=== PATIENT | male | born 1955 | race Caucasian/White ===

== ENCOUNTER 2018-08-19 02:56 | Observation (INO) | payer OTHER ==
--- NOTE | 2018-08-19 03:09 | ED ---
General Adult HPI <Kamari Freed - Last Filed: 08/19/18 12:50> - General Source: patient, family Mode of arrival: ambulatory Limitations: no limitations <Neelam Rincon - Last Filed: 08/26/18 21:15> - General Chief complaint: Abdominal Pain Stated complaint: Side pain Time Seen by Provider: 08/19/18 03:08 - History of Present Illness Initial comments: Fabiano is an obese 62-year-old male who presents the emergency department today for reevaluation of right-sided rib and flank pain. Patient reports that on he had a coughing fit and believes that he displaced rib. He experienced excruciating pain in his right ribs at that time. Since he has been evaluated by urgent care that he had an unremarkable chest x- ray and was prescribed narcotic pain medications. He subsequently followed up with his primary care provider 2 times had repeat chest x-rays was prescribed narcotic pain medications. Both visits and muscle relaxers. Patient reports that last week he believed his symptoms were getting better however he is now out of medications and since Saturday he has had progressively worsening right- sided rib pain. He reports that tonight he was unable to sleep at all due to the pain. Pain is sharp in the right-sided ribs worse with deep inspiration, cough, sneezing. (Neelam Rincon) - Related Data Home Medications Medication Instructions Recorded Confirmed Atorvastatin [Lipitor] 20 mg PO W/SUPPER 07/15/14 08/19/18 metFORMIN HCL [Glucophage] 500 mg PO W/SUPPER 07/15/14 08/19/18 Allopurinol [Zyloprim] 200 mg PO W/SUPPER 03/05/16 08/19/18 Citalopram Hydrobromide [CeleXA] 20 mg PO W/SUPPER 08/19/18 08/19/18 Diltiazem Cd [Cardizem CD] 300 mg PO W/SUPPER 08/19/18 08/19/18 Magnesium Oxide [Mag-Ox] 800 mg PO W/SUPPER 08/19/18 08/19/18 Previous Rx's Medication Instructions Recorded Cyclobenzaprine [Flexeril] 5 mg PO TID PRN #20 tab 08/21/18 HYDROcodone/APAP 5-325MG [[place] 1 tab PO Q6HR PRN 3 Days #12 tab 08/21/18 5-325] Pantoprazole [Protonix] 40 mg PO BID #60 tablet. 08/21/18 traMADol HCL [Ultram] 50 mg PO Q6HR PRN 3 Days #12 tab 08/21/18 Allergies Allergy/AdvReac Type Severity Reaction Status Date / Time No Known Allergies Allergy Verified 08/19/18 12:20 Review of Systems ROS Other: All systems not noted in ROS Statement are negative. <Kamari Freed - Last Filed: 08/19/18 12:50> ROS Other: All systems not noted in ROS Statement are negative. <Neelam Rincon - Last Filed: 08/26/18 21:15> ROS Statement: Those systems with pertinent positive or pertinent negative responses have been documented in the HPI. Past Medical History Past Medical History: Diabetes Mellitus, Hyperlipidemia, Hypertension History of Any Multi-Drug Resistant Organisms: None Reported Past Surgical History: Back Surgery Past Psychological History: Depression Smoking Status: Never smoker Past Alcohol Use History: Rare Past Drug Use History: None Reported - Past Family History Father Family Medical History: Coronary Artery Disease (CAD) Additional Family Medical History / Comment(s): Father while on the list for a heart donation. He had CABG twice. Mother Family Medical History: Coronary Artery Disease (CAD), Hypertension, Renal Disease Additional Family Medical History / Comment(s): Mother had CABG. She lived to be 97yrs old. <Neelam Rincon - Last Filed: 08/26/18 21:15> General Exam Limitations: no limitations <Neelam Rincon - Last Filed: 08/26/18 21:15> Course <Kamari Freed - Last Filed: 08/19/18 12:50> <Neelam Rincon - Last Filed: 08/26/18 21:15> Vital Signs 08/19/18 08/19/18 08/19/18 02:57 07:20 13:21 Temperature 98.3 F 97.9 F Pulse Rate 75 79 74 Respiratory 24 18 17 Rate Blood Pressure 143/83 136/77 128/87 O2 Sat by Pulse 91 L 97 95 Oximetry - Reevaluation(s) Reevaluation #1: 01/29/19 12:51 The patient was endorsed me at our shift change pending ultrasound report. Patient demonstrates a sonographic Maguire sign. Patient has abdominal pain on palpation no evidence of any rash. No evidence fractures. No gallstones noted. Patient does have intractable pain will be admitted with surgical consultation. (Kamari Freed) Medical Decision Making - Lab Data Result diagrams: 08/19/18 05:50 08/19/18 04:35 <Kamari Freed - Last Filed: 08/19/18 12:50> - Lab Data Result diagrams: 08/20/18 07:11 08/21/18 11:23 <Neelam Rincon - Last Filed: 08/26/18 21:15> - Medical Decision Making Patient was seen and evaluated history is obtained from patient Labs and imaging were ordered and sent considering the persistence of the patient's right-sided rib pain as well as hypoxia I have concern for occult rib fracture versus pulmonary embolism Labs and imaging were ordered Labs had some hemolysis there is mild hyperkalemia CT pulmonary embolism study with no PE no signs of rib fracture no cause for patient's pain Patient received morphine and then Dilaudid he reports his pain remains 10 out of 10 Lidoderm was ordered for the discomfort Patient does have an outpatient ultrasound of his liver ordered, we'll perform ultrasound here to evaluate gallbladder despite the normal labs Patient care signed out to Dr. Freed at shift change (Neelam Rincon) - Lab Data Lab Results 08/19/18 08/19/18 08/19/18 Range/Units 04:35 05:50 05:50 WBC 11.0 H (3.8-10.6) k/uL RBC 4.00 L (4.30-5.90) m/uL Hgb 11.7 L (13.0-17.5) gm/dL Hct 38.2 L (39.0-53.0) % MCV 95.4 (80.0-100.0) fL MCH 29.2 (25.0-35.0) pg MCHC 30.6 L (31.0-37.0) g/dL RDW 14.6 (11.5-15.5) % Plt Count 298 (150-450) k/uL Neutrophils % 73 % Lymphocytes % 18 % Monocytes % 5 % Eosinophils % 2 % Basophils % 0 % Neutrophils # 8.0 H (1.3-7.7) k/uL Lymphocytes # 2.0 (1.0-4.8) k/uL Monocytes # 0.6 (0-1.0) k/uL Eosinophils # 0.2 (0-0.7) k/uL Basophils # 0.0 (0-0.2) k/uL PT 9.4 (9.0-12.0) sec INR 0.9 (<1.2) APTT 22.6 (22.0-30.0) sec D-Dimer 0.86 H (<0.60) mg/L FEU Sodium 135 L (137-145) mmol/L Potassium 5.6 H (3.5-5.1) mmol/L Chloride 105 (98-107) mmol/L Carbon Dioxide 21 L (22-30) mmol/L Anion Gap 9 mmol/L BUN 31 H (9-20) mg/dL Creatinine 1.43 H (0.66-1.25) mg/dL Est GFR (CKD-EPI)AfAm 60 (>60 ml/min/1.73 sqM) Est GFR (CKD-EPI)NonAf 52 (>60 ml/min/1.73 sqM) Glucose 146 H (74-99) mg/dL Estimated Ave Glu mg/dL Hemoglobin A1c (4.0-6.0) % Calcium 9.8 (8.4-10.2) mg/dL Total Bilirubin 0.7 (0.2-1.3) mg/dL AST 24 (17-59) U/L ALT 35 (21-72) U/L Alkaline Phosphatase 73 (38-126) U/L NT-Pro-B Natriuret Pep pg/mL Total Protein 7.5 (6.3-8.2) g/dL Albumin 4.1 (3.5-5.0) g/dL Amylase 111 H (30-110) U/L Lipase 151 (23-300) U/L 08/19/18 08/19/18 Range/Units 05:50 05:50 WBC (3.8-10.6) k/uL RBC (4.30-5.90) m/uL Hgb (13.0-17.5) gm/dL Hct (39.0-53.0) % MCV (80.0-100.0) fL MCH (25.0-35.0) pg MCHC (31.0-37.0) g/dL RDW (11.5-15.5) % Plt Count (150-450) k/uL Neutrophils % % Lymphocytes % % Monocytes % % Eosinophils % % Basophils % % Neutrophils # (1.3-7.7) k/uL Lymphocytes # (1.0-4.8) k/uL Monocytes # (0-1.0) k/uL Eosinophils # (0-0.7) k/uL Basophils # (0-0.2) k/uL PT (9.0-12.0) sec INR (<1.2) APTT (22.0-30.0) sec D-Dimer (<0.60) mg/L FEU Sodium (137-145) mmol/L Potassium (3.5-5.1) mmol/L Chloride (98-107) mmol/L Carbon Dioxide (22-30) mmol/L Anion Gap mmol/L BUN (9-20) mg/dL Creatinine (0.66-1.25) mg/dL Est GFR (CKD-EPI)AfAm (>60 ml/min/1.73 sqM) Est GFR (CKD-EPI)NonAf (>60 ml/min/1.73 sqM) Glucose (74-99) mg/dL Estimated Ave Glu mg/dL 189 Hemoglobin A1c 8.2 H (4.0-6.0) % Calcium (8.4-10.2) mg/dL Total Bilirubin (0.2-1.3) mg/dL AST (17-59) U/L ALT (21-72) U/L Alkaline Phosphatase (38-126) U/L NT-Pro-B Natriuret Pep 65 pg/mL Total Protein (6.3-8.2) g/dL Albumin (3.5-5.0) g/dL Amylase (30-110) U/L Lipase (23-300) U/L Disposition <Kamari Freed - Last Filed: 08/19/18 12:50> <Neelam Rincon - Last Filed: 08/26/18 21:15> Clinical Impression: Abdominal pain, Intractable abdominal pain, Biliary colic Disposition: ADMITTED IP TO THIS HOSP Condition: Stable
[2018-08-19] MEDS ORDERED: SODIUM CHLORIDE 0.9% 1,000 ML IV STA (03:59)
[2018-08-19] MEDS ORDERED: MORPHINE SULFATE 4 MG/ML SYRINGE IVP STA (04:41)
[2018-08-19 05:12] LABS: Albumin 4.1 g/dL (3.5-5.0); Calcium 9.8 mg/dL (8.4-10.2); Total Bilirubin 0.7 mg/dL (0.2-1.3); Total Protein 7.5 g/dL (6.3-8.2)
[2018-08-19 05:28] LABS: Potassium 5.6 mmol/L (3.5-5.1)
[2018-08-19] MEDS ORDERED: HYDROmorphone 1 MG/ML 1 ML SYRINGE IVP STA ×2 (06:08→12:50)
[2018-08-19 06:29] LABS: INR 0.9 (<1.2); Partial Thromboplastin Time 22.6 sec (22.0-30.0); Prothrombin Time 9.4 sec (9.0-12.0)
[2018-08-19 06:40] LABS: D-Dimer 0.86 mg/L FEU (<0.60)
[2018-08-19 06:46] LABS: Basophils % (A) 0 %; Eosinophils # (A) 0.2 k/uL (0-0.7); Eosinophils % (A) 2 %; HCT 38.2 % (39.0-53.0); HGB 11.7 gm/dL (13.0-17.5); Lymphocytes % (A) 18 %; MCH 29.2 pg (25.0-35.0); MCHC 30.6 g/dL (31.0-37.0); MCV 95.4 fL (80.0-100.0); Mean Platelet Volume 6.5; Monocytes # (A) 0.6 k/uL (0-1.0); Monocytes % (A) 5 %; Neutrophils % (A) 73 %; Platelet Count 298 k/uL (150-450); RDW 14.6 % (11.5-15.5)
--- NOTE | 2018-08-19 07:07 | CT ---
EXAM: CT Angiography Chest With Intravenous Contrast CLINICAL HISTORY: ITS.REASON CT Reason: Pain TECHNIQUE: Axial computed tomographic angiography images of the chest with intravenous contrast using pulmonary embolism protocol. CTDI is 31.1 mGy and DLP is 906.4 mGy-cm. This CT exam was performed using one or more of the following dose reduction techniques: automated exposure control, adjustment of the mA and/or kV according to patient size, and/or use of iterative reconstruction technique. MIP reconstructed images were created and reviewed. Coronal and sagittal reformatted images were created and reviewed. COMPARISON: No relevant prior studies available. FINDINGS: Pulmonary arteries: No evidence of pulmonary embolism. Aorta: No acute findings. No thoracic aortic aneurysm. Lungs: Low lung volumes with mosaic attenuation which may reflect a degree of air trapping. No mass. Pleural space: Unremarkable. No significant effusion. No pneumothorax. Heart: Coronary vessel calcifications. No significant pericardial effusion. No evidence of RV dysfunction. Bones/joints: Multilevel degenerative changes of the spine. No acute fracture. No dislocation. Soft tissues: Prominent epicardial fat. Lymph nodes: Unremarkable. No enlarged lymph nodes. IMPRESSION: 1. No evidence of pulmonary embolism. 2. Low lung volumes with mosaic attenuation which may reflect a degree of air trapping.
[2018-08-19] MEDS ORDERED: LIDOCAINE 5% PATCH TOPICAL STA (07:42)
--- NOTE | 2018-08-19 08:53 | US ---
EXAMINATION TYPE: US abdomen limited DATE OF EXAM: 08/19/2018 COMPARISON: CT & US CLINICAL HISTORY: Pain. RUQ pain EXAM MEASUREMENTS: Liver Length: 13.8 cm Gallbladder Wall: 0.3 cm CBD: 0.4 cm Right Kidney: 11.6 x 7.2 x 6.5 cm Technically difficult study. Patient of large body habitus. Extensive midline bowel gas present. Elly ent very tender, does not tolerate probe pressure. Patient complains of shooting pains like a leg scraper operator mp in abdomen. Doctor states normal bloodwork. Pancreas: not visualized due to midline bowel gas Liver: very limited evaluation, limited to intercostal window. Gallbladder: very limited evaluation, no obvious stones seen Evidence for sonographic Maguire's sign: Yes, patient very tender everywhere, unable to tolerate pr obe pressure CBD: very limited evaluation Right Kidney: No hydronephrosis or masses seen IMPRESSION: 1. Limited evaluation. Positive sonographic Maguire's sign. No evidence of cholelithiasis this time. 2. Coarse echo appearance throughout the liver. Consider fatty liver.
[2018-08-19] MEDS ORDERED: ONDANSETRON 4 MG/2 ML VIAL IVP PRN (12:52)
[2018-08-19] MEDS ORDERED: NALOXONE 0.4 MG/ML 1 ML VIAL IV PRN (12:52)
--- NOTE | 2018-08-19 15:20 | P.GSCN ---
History of Present Illness Consult date: 08/19/18 Reason for Consult: Right upper quadrant pain History of present illness: Patient presents to the hospital complaining of pain in the right upper quadrant right chest region. Apparently he fell on and landed on his left hip. Approximately one week later the patient was having some heavy sneezing and developed right upper quadrant pain. This pain has persisted over the last several weeks. Pain is aggravated by bending over, coughing, sneezing , laughing. No correlation with greasy food intake. No nausea or vomiting. No change in appetite. Patient says he has had x-rays. CAT scan of the chest showed no definite abnormalities. Ultrasound showed no gallstones. Patient denies any trauma or bruising to that location. No rash in that area. Patient was given antibiotics for a upper respiratory infection. He was also given muscle relaxants and felt that the pain was gradually improving on the muscle relaxants. No history of similar events in the past. Pain does radiate to the back at times. White blood cell count slightly elevated. Amylase slightly elevated. Liver enzymes normal. 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 Past Anesthesia/Blood Transfusion Reactions: No Reported Reaction Smoking Status: Never smoker - Past Family History Father Family Medical History: Coronary Artery Disease (CAD) Additional Family Medical History / Comment(s): Father while on the list for a heart donation. He had CABG twice. Mother Family Medical History: Coronary Artery Disease (CAD), Hypertension, Renal Disease Additional Family Medical History / Comment(s): Mother had CABG. She lived to be 97yrs old. Medications and Allergies Home Medications Medication Instructions Recorded Confirmed Type Atorvastatin [Lipitor] 20 mg PO W/SUPPER 07/15/14 08/19/18 History Lisinopril [Zestril] 10 mg PO W/SUPPER 07/15/14 08/19/18 History metFORMIN HCL [Glucophage] 500 mg PO W/SUPPER 07/15/14 08/19/18 History Allopurinol [Zyloprim] 200 mg PO W/SUPPER 03/05/16 08/19/18 History Citalopram Hydrobromide [CeleXA] 20 mg PO W/SUPPER 08/19/18 08/19/18 History Diltiazem Cd [Cardizem Cd] 300 mg PO W/SUPPER 08/19/18 08/19/18 History Magnesium Oxide [Mag-Ox] 800 mg PO W/SUPPER 08/19/18 08/19/18 History Allergies Allergy/AdvReac Type Severity Reaction Status Date / Time No Known Allergies Allergy Verified 08/19/18 12:20 Surgical - Exam Vital Signs Temp Pulse Resp BP Pulse Ox 98.3 F 75 24 143/83 91 L 08/19/18 02:57 08/19/18 02:57 08/19/18 02:57 08/19/18 02:57 08/19/18 02:57 Physical exam: General: Well-developed, well-nourished HEENT: Normocephalic, sclerae nonicteric Abdomen: Right costal tenderness, tenderness on the right chest wall, no bruising, right upper quadrant tenderness as well, nondistended Extremities: No edema Neuro: Alert and oriented Results - Labs 08/19/18 05:50 08/19/18 04:35 Abnormal Lab Results - Last 24 Hours (Table) 08/19/18 08/19/18 08/19/18 Range/Units 04:35 05:50 05:50 WBC 11.0 H (3.8-10.6) k/uL RBC 4.00 L (4.30-5.90) m/uL Hgb 11.7 L (13.0-17.5) gm/dL Hct 38.2 L (39.0-53.0) % MCHC 30.6 L (31.0-37.0) g/dL Neutrophils # 8.0 H (1.3-7.7) k/uL D-Dimer 0.86 H (<0.60) mg/L FEU Sodium 135 L (137-145) mmol/L Potassium 5.6 H (3.5-5.1) mmol/L Carbon Dioxide 21 L (22-30) mmol/L BUN 31 H (9-20) mg/dL Creatinine 1.43 H (0.66-1.25) mg/dL Glucose 146 H (74-99) mg/dL Amylase 111 H (30-110) U/L Diabetes panel 08/19/18 Range/Units 04:35 Sodium 135 L (137-145) mmol/L Potassium 5.6 H (3.5-5.1) mmol/L Chloride 105 (98-107) mmol/L Carbon Dioxide 21 L (22-30) mmol/L BUN 31 H (9-20) mg/dL Creatinine 1.43 H (0.66-1.25) mg/dL Glucose 146 H (74-99) mg/dL Calcium 9.8 (8.4-10.2) mg/dL AST 24 (17-59) U/L ALT 35 (21-72) U/L Alkaline Phosphatase 73 (38-126) U/L Total Protein 7.5 (6.3-8.2) g/dL Albumin 4.1 (3.5-5.0) g/dL Calcium panel 08/19/18 Range/Units 04:35 Calcium 9.8 (8.4-10.2) mg/dL Albumin 4.1 (3.5-5.0) g/dL Pituitary panel 08/19/18 Range/Units 04:35 Sodium 135 L (137-145) mmol/L Potassium 5.6 H (3.5-5.1) mmol/L Chloride 105 (98-107) mmol/L Carbon Dioxide 21 L (22-30) mmol/L BUN 31 H (9-20) mg/dL Creatinine 1.43 H (0.66-1.25) mg/dL Glucose 146 H (74-99) mg/dL Calcium 9.8 (8.4-10.2) mg/dL Adrenal panel 08/19/18 Range/Units 04:35 Sodium 135 L (137-145) mmol/L Potassium 5.6 H (3.5-5.1) mmol/L Chloride 105 (98-107) mmol/L Carbon Dioxide 21 L (22-30) mmol/L BUN 31 H (9-20) mg/dL Creatinine 1.43 H (0.66-1.25) mg/dL Glucose 146 H (74-99) mg/dL Calcium 9.8 (8.4-10.2) mg/dL Total Bilirubin 0.7 (0.2-1.3) mg/dL AST 24 (17-59) U/L ALT 35 (21-72) U/L Alkaline Phosphatase 73 (38-126) U/L Total Protein 7.5 (6.3-8.2) g/dL Albumin 4.1 (3.5-5.0) g/dL Assessment and Plan (1) Abdominal pain Narrative/Plan: Patient's history and exam suggest probably a musculoskeletal source of pain. Underlying biliary disease has not been completely excluded. CAT scan abdomen with contrast and HIDA scan remain options to evaluate this patient's pain although certainly will be limited by the patient's body habitus. The patient himself believes that the symptoms are related to his lower right ribs. Will resume diet at this time. We'll follow with you. Current Visit: Yes Status: Acute Code(s): R10.9 - UNSPECIFIED ABDOMINAL PAIN SNOMED Code(s): 83493009
[2018-08-19] MEDS: SODIUM CHLORIDE 0.9% 1,000 ML IV SCH ×2 (15:49→23:03)
[2018-08-19] MEDS: HYDROmorphone 0.5 MG/0.5 ML SYRINGE IVP PRN ×3 (16:36→22:59)
[2018-08-19 17:14] LABS: Glucose,Whole Blood 132 mg/dL (75-99)
[2018-08-19] MEDS: traMADol 50 MG TAB PO PRN (17:47)
[2018-08-19] MEDS: ATORVASTATIN 20 MG TAB PO SCH (17:47)
[2018-08-19] MEDS: DILTIAZEM CD 300 MG CAP.ER.24H PO SCH (17:48)
[2018-08-19] MEDS: INSULIN ASPART 100 UNIT/ML 1 ML 10 ML VIAL SQ SCH ×2 (17:48→20:53)
--- NOTE | 2018-08-19 18:22 | P.HPIM ---
History of Present Illness 62-year-old the female came in with complains of bladder, upper quadrant abdominal pain severe patient has some chronic abdominal pain much worse for last couple days appears to be muscular skeletal patient elicits like a muscle pull. Patient had a CAT scan of the abdomen which did not show any pulmonary embolism abdominal ultrasound did not show any significant abnormality. Patient 's abdominal pain is not related to food constant pain no aggravating or relieving factors. Patient denied any fever chills. Gradually improves with muscle relaxants. Review of Systems REVIEW OF SYSTEMS: CONSTITUTIONAL: No fever, no malaise, no fatigue. HEENT: No recent visual problems or hearing problems. Denied any sore throat. CARDIOVASCULAR: No chest pain, orthopnea, PND, no palpitations, no syncope. PULMONARY: No shortness of breath, no cough, no hemoptysis. GASTROINTESTINAL: As mentioned in HPI NEUROLOGICAL: No headaches, no weakness, no numbness. HEMATOLOGICAL: Denies any bleeding or petechiae. GENITOURINARY: Denies any burning micturition, frequency, or urgency. MUSCULOSKELETAL/RHEUMATOLOGICAL: Denies any joint pain, swelling, or any muscle pain. ENDOCRINE: Denies any polyuria or polydipsia. The rest of the 14-point review of systems is negative. 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 Past Anesthesia/Blood Transfusion Reactions: No Reported Reaction Smoking Status: Never smoker - Past Family History Father Family Medical History: Coronary Artery Disease (CAD) Additional Family Medical History / Comment(s): Father while on the list for a heart donation. He had CABG twice. Mother Family Medical History: Coronary Artery Disease (CAD), Hypertension, Renal Disease Additional Family Medical History / Comment(s): Mother had CABG. She lived to be 97yrs old. Medications and Allergies Home Medications Medication Instructions Recorded Confirmed Type Atorvastatin [Lipitor] 20 mg PO W/SUPPER 07/15/14 08/19/18 History Lisinopril [Zestril] 10 mg PO W/SUPPER 07/15/14 08/19/18 History metFORMIN HCL [Glucophage] 500 mg PO W/SUPPER 07/15/14 08/19/18 History Allopurinol [Zyloprim] 200 mg PO W/SUPPER 03/05/16 08/19/18 History Citalopram Hydrobromide [CeleXA] 20 mg PO W/SUPPER 08/19/18 08/19/18 History Diltiazem Cd [Cardizem Cd] 300 mg PO W/SUPPER 08/19/18 08/19/18 History Magnesium Oxide [Mag-Ox] 800 mg PO W/SUPPER 08/19/18 08/19/18 History Allergies Allergy/AdvReac Type Severity Reaction Status Date / Time No Known Allergies Allergy Verified 08/19/18 12:20 Physical Exam Vitals: Vital Signs Temp Pulse Pulse Resp BP BP Pulse Ox 08/19/18 15:20 97.8 F 73 22 161/78 87 L 08/19/18 13:21 97.9 F 74 17 128/87 95 08/19/18 07:20 79 18 136/77 97 08/19/18 02:57 98.3 F 75 24 143/83 91 L Intake and Output 08/19/18 08/19/18 08/19/18 06:59 14:59 22:59 Other: Voiding Method Toilet Weight 158.757 kg PHYSICAL EXAMINATION: GENERAL: The patient is alert and oriented x3, not in any acute distress. Morbidly obese HEENT: Pupils are round and equally reacting to light. EOMI. No scleral icterus. No conjunctival pallor. Normocephalic, atraumatic. No pharyngeal erythema. No thyromegaly. CARDIOVASCULAR: S1 and S2 present. No murmurs, rubs, or gallops. PULMONARY: Chest is clear to auscultation, no wheezing or crackles. ABDOMEN: Soft, does have tenderness in the right upper quadrant appears to be mostly superficial tenderness can be elicited with out to deep palpation MUSCULOSKELETAL: No joint swelling or deformity. EXTREMITIES: No cyanosis, clubbing, or pedal edema. NEUROLOGICAL: Gross neurological examination did not reveal any focal deficits. SKIN: No rashes. Results CBC & Chem 7: 08/19/18 05:50 08/19/18 04:35 Labs: Abnormal Lab Results - Last 24 Hours (Table) 08/19/18 08/19/18 08/19/18 Range/Units 04:35 05:50 05:50 WBC 11.0 H (3.8-10.6) k/uL RBC 4.00 L (4.30-5.90) m/uL Hgb 11.7 L (13.0-17.5) gm/dL Hct 38.2 L (39.0-53.0) % MCHC 30.6 L (31.0-37.0) g/dL Neutrophils # 8.0 H (1.3-7.7) k/uL D-Dimer 0.86 H (<0.60) mg/L FEU Sodium 135 L (137-145) mmol/L Potassium 5.6 H (3.5-5.1) mmol/L Carbon Dioxide 21 L (22-30) mmol/L BUN 31 H (9-20) mg/dL Creatinine 1.43 H (0.66-1.25) mg/dL Glucose 146 H (74-99) mg/dL POC Glucose (mg/dL) (75-99) mg/dL Amylase 111 H (30-110) U/L 08/19/18 Range/Units 17:13 WBC (3.8-10.6) k/uL RBC (4.30-5.90) m/uL Hgb (13.0-17.5) gm/dL Hct (39.0-53.0) % MCHC (31.0-37.0) g/dL Neutrophils # (1.3-7.7) k/uL D-Dimer (<0.60) mg/L FEU Sodium (137-145) mmol/L Potassium (3.5-5.1) mmol/L Carbon Dioxide (22-30) mmol/L BUN (9-20) mg/dL Creatinine (0.66-1.25) mg/dL Glucose (74-99) mg/dL POC Glucose (mg/dL) 132 H (75-99) mg/dL Amylase (30-110) U/L Thrombosis Risk Factor Assmnt - Choose All That Apply Any of the Below Risk Factors Present?: Yes Each Factor Represents 1 point: Obesity (BMI >25) Other Risk Factors: Yes Each Risk Factor Represents 2 Points: Age 61-74 years Other congenital or acquired thrombophilia - If yes, enter type in comment: No Thrombosis Risk Factor Assessment Total Risk Factor Score: 3 Thrombosis Risk Factor Assessment Level: Moderate Risk Assessment and Plan Plan: -Right upper quadrant abdominal pain does not appear to be cholecystitis patient will be continued on Protonix appears to be mostly muscular skeletal in nature rule out pulmonary embolism. Continue with present pain regimen, add tramadol for pain. General surgery evaluated the patient I'm unable to get a CAT scan of the abdomen because of the poor renal function -Acute renal failure secondary to prerenal azotemia and chronic kidney disease secondary to diabetic nephropathy. Patient appears to have chronic kidney disease stage II baseline creatinine around 1.2 now around 1.4 can you with IV fluids -Hyperkalemia secondary to NADIA inhibitor and acute renal failure -Leukocytosis reactive abdomen sepsis -Type 2 diabetes mellitus: Metformin will be held patient eventually scale insulin -Hyperlipidemia -Hypertension -Sleep apnea Hypermobility placed
[2018-08-19] MEDS: PANTOPRAZOLE 40 MG/10 ML VIAL IVP SCH (19:54)
[2018-08-19 20:21] LABS: Glucose,Whole Blood 197 mg/dL (75-99)
[2018-08-19 23:12] LABS: Hemoglobin A1C 8.2 % (4.0-6.0)
[2018-08-20] MEDS: traMADol 50 MG TAB PO PRN ×4 (00:07→21:34)
[2018-08-20] MEDS: HYDROmorphone 0.5 MG/0.5 ML SYRINGE IVP PRN ×7 (01:41→23:04)
[2018-08-20] MEDS: SODIUM CHLORIDE 0.9% 1,000 ML IV SCH ×3 (04:36→21:37)
[2018-08-20 07:00] LABS: Glucose,Whole Blood 143 mg/dL (75-99)
[2018-08-20] MEDS: PANTOPRAZOLE 40 MG/10 ML VIAL IVP SCH (07:50)
[2018-08-20] MEDS: INSULIN ASPART 100 UNIT/ML 1 ML 10 ML VIAL SQ SCH ×4 (07:50→21:35)
[2018-08-20 07:53] LABS: Basophils % (A) 0 %; Eosinophils # (A) 0.3 k/uL (0-0.7); Eosinophils % (A) 2 %; HCT 38.9 % (39.0-53.0); HGB 11.9 gm/dL (13.0-17.5); Hypochromasia Moderate; Lymphocytes % (A) 16 %; MCH 30.2 pg (25.0-35.0); MCHC 30.6 g/dL (31.0-37.0); MCV 98.7 fL (80.0-100.0); Mean Platelet Volume 6.6; Monocytes # (A) 0.6 k/uL (0-1.0); Monocytes % (A) 5 %; Neutrophils # (A) 8.8 k/uL (1.3-7.7); Neutrophils % (A) 74 %; Platelet Count 282 k/uL (150-450); RBC 3.94 m/uL (4.30-5.90); RDW 14.2 % (11.5-15.5); WBC 11.9 k/uL (3.8-10.6)
[2018-08-20 08:14] LABS: Albumin 3.6 g/dL (3.5-5.0); Calcium 9.2 mg/dL (8.4-10.2); Potassium 5.7 mmol/L (3.5-5.1); Total Bilirubin 0.7 mg/dL (0.2-1.3); Total Protein 6.7 g/dL (6.3-8.2)
--- NOTE | 2018-08-20 08:25 | P.PN ---
Subjective Progress Note Date: 08/20/18 Principal diagnosis: Right upper quadrant pain Patient sitting up in a chair. He is eating breakfast. Denies any increased discomfort with his sausage and pancakes. Still having pain however. Patient states the pain seems to be related to movement. Objective - Vital Signs Vital signs: Vital Signs Temp 97.5 F L 08/20/18 04:53 Pulse 64 08/20/18 04:53 Resp 18 08/20/18 04:53 BP 137/69 08/20/18 04:53 Pulse Ox 95 08/20/18 04:53 Intake & Output 08/19/18 08/20/18 08/20/18 18:59 06:59 18:59 Intake Total 1000 Balance 1000 Intake: Intake, IV Titration 1000 Amount Sodium Chloride 0.9% 1, 1000 000 ml @ 125 mls/hr IV . Q8H [facility] Rx#:[id number] Other: Voiding Method Toilet Toilet # Voids 2 - Exam Right-sided costal tenderness - Labs CBC & Chem 7: 08/20/18 07:11 08/20/18 07:11 Labs: Abnormal Lab Results - Last 24 Hours (Table) 08/19/18 08/19/18 08/19/18 Range/Units 05:50 17:13 20:20 WBC (3.8-10.6) k/uL RBC (4.30-5.90) m/uL Hgb (13.0-17.5) gm/dL Hct (39.0-53.0) % MCHC (31.0-37.0) g/dL Neutrophils # (1.3-7.7) k/uL Potassium (3.5-5.1) mmol/L BUN (9-20) mg/dL Creatinine (0.66-1.25) mg/dL Glucose (74-99) mg/dL POC Glucose (mg/dL) 132 H 197 H (75-99) mg/dL Hemoglobin A1c 8.2 H (4.0-6.0) % 08/20/18 08/20/18 08/20/18 Range/Units 06:58 07:11 07:11 WBC 11.9 H (3.8-10.6) k/uL RBC 3.94 L (4.30-5.90) m/uL Hgb 11.9 L (13.0-17.5) gm/dL Hct 38.9 L (39.0-53.0) % MCHC 30.6 L (31.0-37.0) g/dL Neutrophils # 8.8 H (1.3-7.7) k/uL Potassium 5.7 H (3.5-5.1) mmol/L BUN 26 H (9-20) mg/dL Creatinine 1.28 H (0.66-1.25) mg/dL Glucose 134 H (74-99) mg/dL POC Glucose (mg/dL) 143 H (75-99) mg/dL Hemoglobin A1c (4.0-6.0) % Assessment and Plan (1) Abdominal pain Narrative/Plan: Continue diet as tolerated. Continue analgesics. Will follow. Current Visit: Yes Status: Acute Code(s): R10.9 - UNSPECIFIED ABDOMINAL PAIN SNOMED Code(s): 57676239
[2018-08-20 11:12] LABS: Glucose,Whole Blood 199 mg/dL (75-99)
[2018-08-20] MEDS ORDERED: SODIUM POLYSTYRENE SULFONATE 15 GM/60 ML BOTTLE PO STA (15:13)
--- NOTE | 2018-08-20 15:17 | P.PN ---
Subjective 62-year-old the female came in with complains of bladder, upper quadrant abdominal pain severe patient has some chronic abdominal pain much worse for last couple days appears to be muscular skeletal patient elicits like a muscle pull. Patient had a CAT scan of the abdomen which did not show any pulmonary embolism abdominal ultrasound did not show any significant abnormality. Patient 's abdominal pain is not related to food constant pain no aggravating or relieving factors. Patient denied any fever chills. Gradually improves with muscle relaxants. 08/20/2018 Patient pain appears to be better today mostly for [place] skeletal related to muscle relaxants and since his creatinine is improving continue to hydrate him continue to hold NADIA inhibitor patient is hyperkalemic will give capsulate will recheck the basic metabolic profile tomorrow asked him to avoid the Dilaudid today continue with tramadol. If patient's pain is better if creatinine and potassium are better patient probably can be discharged tomorrow I'll leave the addition of obtaining an abdominal CAT scan to general surgery Constitutional: Denied any fatigue denied any fever. Cardio vascular: denied any chest pain, palpitations Gastrointestinal denied any nausea vomiting Pulmonary: Denied any shortness of breath cough Neurologic denied any new focal deficits All inpatient medications were reviewed and appropriate changes in these medications as dictated in the interval history and assessment and plan. Objective - Vital Signs Vital signs: Vital Signs Temp 98.2 F 08/20/18 12:10 Pulse 70 08/20/18 12:10 Resp 20 08/20/18 12:10 BP 155/92 08/20/18 12:10 Pulse Ox 96 08/20/18 12:10 Intake & Output 08/19/18 08/20/18 08/20/18 18:59 06:59 18:59 Intake Total 1000 Balance 1000 Intake: Intake, IV Titration 1000 Amount Sodium Chloride 0.9% 1, 1000 000 ml @ 125 mls/hr IV . Q8H [facility] Rx#:[id number] Other: Voiding Method Toilet Toilet Toilet # Voids 2 3 - Exam PHYSICAL EXAMINATION: GENERAL: The patient is alert and oriented x3, not in any acute distress. Morbidly obese HEENT: Pupils are round and equally reacting to light. EOMI. No scleral icterus. No conjunctival pallor. Normocephalic, atraumatic. No pharyngeal erythema. No thyromegaly. CARDIOVASCULAR: S1 and S2 present. No murmurs, rubs, or gallops. PULMONARY: Chest is clear to auscultation, no wheezing or crackles. ABDOMEN: Soft, does have tenderness in the right lower quadrants quadrant appears to be mostly superficial tenderness can be elicited with out to deep palpation MUSCULOSKELETAL: No joint swelling or deformity. EXTREMITIES: No cyanosis, clubbing, or pedal edema. NEUROLOGICAL: Gross neurological examination did not reveal any focal deficits. SKIN: No rashes. - Labs CBC & Chem 7: 08/20/18 07:11 08/20/18 07:11 Labs: Abnormal Lab Results - Last 24 Hours (Table) 08/19/18 08/19/18 08/19/18 Range/Units 05:50 17:13 20:20 WBC (3.8-10.6) k/uL RBC (4.30-5.90) m/uL Hgb (13.0-17.5) gm/dL Hct (39.0-53.0) % MCHC (31.0-37.0) g/dL Neutrophils # (1.3-7.7) k/uL Potassium (3.5-5.1) mmol/L BUN (9-20) mg/dL Creatinine (0.66-1.25) mg/dL Glucose (74-99) mg/dL POC Glucose (mg/dL) 132 H 197 H (75-99) mg/dL Hemoglobin A1c 8.2 H (4.0-6.0) % 08/20/18 08/20/18 08/20/18 Range/Units 06:58 07:11 07:11 WBC 11.9 H (3.8-10.6) k/uL RBC 3.94 L (4.30-5.90) m/uL Hgb 11.9 L (13.0-17.5) gm/dL Hct 38.9 L (39.0-53.0) % MCHC 30.6 L (31.0-37.0) g/dL Neutrophils # 8.8 H (1.3-7.7) k/uL Potassium 5.7 H (3.5-5.1) mmol/L BUN 26 H (9-20) mg/dL Creatinine 1.28 H (0.66-1.25) mg/dL Glucose 134 H (74-99) mg/dL POC Glucose (mg/dL) 143 H (75-99) mg/dL Hemoglobin A1c (4.0-6.0) % 08/20/18 Range/Units 11:10 WBC (3.8-10.6) k/uL RBC (4.30-5.90) m/uL Hgb (13.0-17.5) gm/dL Hct (39.0-53.0) % MCHC (31.0-37.0) g/dL Neutrophils # (1.3-7.7) k/uL Potassium (3.5-5.1) mmol/L BUN (9-20) mg/dL Creatinine (0.66-1.25) mg/dL Glucose (74-99) mg/dL POC Glucose (mg/dL) 199 H (75-99) mg/dL Hemoglobin A1c (4.0-6.0) % Assessment and Plan Plan: -Right upper quadrant abdominal pain does not appear to be cholecystitis patient will be continued on Protonix appears to be mostly muscular skeletal in nature ruled out pulmonary embolism. Continue with present pain regimen, add tramadol for pain my adding Flexeril. General surgery evaluated the patient I' m unable to get a CAT scan of the abdomen because of the poor renal function -Acute renal failure secondary to prerenal azotemia and chronic kidney disease secondary to diabetic nephropathy. Patient appears to have chronic kidney disease stage II baseline creatinine around 1.2 now around 1.4 can you with IV fluids daily failure improved patient's creatinine is almost at his baseline -Hyperkalemia secondary to NADIA inhibitor and acute renal failure -Leukocytosis reactive due to abdomen in -Type 2 diabetes mellitus: Metformin will be held patient will be on sliding scale insulin -Hyperlipidemia -Hypertension -Sleep apnea Hypermobility placed
[2018-08-20 16:57] LABS: Glucose,Whole Blood 115 mg/dL (75-99)
[2018-08-20] MEDS: ATORVASTATIN 20 MG TAB PO SCH (17:41)
[2018-08-20] MEDS: CYCLOBENZAPRINE 5 MG TAB PO PRN (17:41)
[2018-08-20] MEDS: DILTIAZEM CD 300 MG CAP.ER.24H PO SCH (17:41)
[2018-08-20 20:25] LABS: Glucose,Whole Blood 188 mg/dL (75-99)
[2018-08-21] MEDS: CYCLOBENZAPRINE 5 MG TAB PO PRN ×2 (01:26→11:58)
[2018-08-21] MEDS: HYDROmorphone 0.5 MG/0.5 ML SYRINGE IVP PRN ×3 (01:27→08:49)
[2018-08-21] MEDS: traMADol 50 MG TAB PO PRN ×2 (03:19→10:37)
[2018-08-21 06:59] LABS: Glucose,Whole Blood 132 mg/dL (75-99)
[2018-08-21] MEDS: INSULIN ASPART 100 UNIT/ML 1 ML 10 ML VIAL SQ SCH ×2 (08:39→13:37)
[2018-08-21] MEDS: SODIUM CHLORIDE 0.9% 1,000 ML IV SCH (08:48)
[2018-08-21] MEDS ORDERED: PANTOPRAZOLE 40 MG TABLET PO SCH (09:00)
[2018-08-21 11:23] LABS: Glucose,Whole Blood 135 mg/dL (75-99)
[2018-08-21 11:51] LABS: Potassium 4.8 mmol/L (3.5-5.1)
[2018-08-21 12:34] VITALS: BP 143/80; PULSE 77; RESP 16; TEMP 97.6
--- NOTE | 2018-08-21 15:13 | P.PN ---
Subjective Progress Note Date: 08/21/18 CHIEF COMPLAINT: Right upper quadrant pain HISTORY OF PRESENT ILLNESS: Patient seen and examined at the bedside. Patient continues to complain of right upper quadrant pain. Patient states his pain is worse with movement and certain positions such as laying in bed. Reports increased pain with coughing or deep breaths. PHYSICAL EXAM: VITAL SIGNS: Currently stable. GENERAL: Well-developed in no acute distress. HEENT: No sclera icterus. Extraocular movements grossly intact. Moist buccal mucosa. Head is atraumatic, normocephalic. Hears conversational speech. No nasal drainage. NECK: Supple without lymphadenopathy. CHEST: Non-labored respirations and equal bilateral excursions. CARDIOVASCULAR: Regular rate with regular rhythm. Palpable 2+ radial pulses. ABDOMEN: Soft. Nondistended. Positive bowel sounds. MUSCULOSKELETAL: No clubbing, cyanosis or edema. NEUROLOGIC: No focal or lateralizing signs. Cranial nerves II through XII grossly intact. PSYCH: Appropriate affect. Alert and oriented to person, place and time. SKIN: Well perfused. Good skin turgor. ASSESSMENT: 1. Right upper quadrant abdominal pain, suspect musculoskeletal in etiology PLAN: Patient examined by Dr. Linn. No surgical intervention recommended. Continue current regimen. Continue current diet. Nurse practitioner note has been reviewed by physician. Signing provider agrees with the documented findings, assessment, and plan of care. Objective - Vital Signs Vital signs: Vital Signs Temp 97.6 F 08/21/18 12:19 Pulse 77 08/21/18 12:19 Resp 16 08/21/18 12:19 BP 143/80 08/21/18 12:19 Pulse Ox 94 L 08/21/18 15:00 Intake & Output 08/20/18 08/21/18 08/21/18 18:59 06:59 18:59 Intake Total 1200 Output Total 3 Balance 1200 -3 Intake: Intake, IV Titration 1200 Amount Sodium Chloride 0.9% 1, 1200 000 ml @ 75 mls/hr IV . [id number] Rx#:[id number] Output: Urine 3 Other: Voiding Method Toilet Toilet Toilet # Voids 3 2 - Labs CBC & Chem 7: 08/20/18 07:11 08/21/18 11:23 Labs: Abnormal Lab Results - Last 24 Hours (Table) 08/20/18 08/20/18 08/21/18 Range/Units 16:56 20:23 06:58 BUN (9-20) mg/dL Glucose (74-99) mg/dL POC Glucose (mg/dL) 115 H 188 H 132 H (75-99) mg/dL 08/21/18 08/21/18 Range/Units 11:22 11:23 BUN 21 H (9-20) mg/dL Glucose 143 H (74-99) mg/dL POC Glucose (mg/dL) 135 H (75-99) mg/dL
--- NOTE | 2018-08-21 17:44 | P.DS ---
Providers Date of admission: 08/19/18 12:58 Expected date of discharge: 08/21/18 Attending physician: Jr Lehman Consults: 08/19/18 12:57 Consult Physician Routine Consulting Provider: Leonardo Bass Consult Reason/Comments: Intractable abdominal pain, biliary colic Do you want consulting provider notified?: Yes Primary care physician: Jose Green Hospital Course: Final Diagnoses: -Right upper quadrant abdominal pain, ultrasound reported no gallstones, suspect musculoskeletal etiology -ruled out pulmonary embolism. Continue with present pain regimen, add tramadol for pain my adding Flexeril -Acute renal failure secondary to prerenal azotemia and chronic kidney disease secondary to diabetic nephropathy. Patient appears to have chronic kidney disease stage II baseline creatinine around 1.2., improved with IV fluids. -Type 2 diabetes mellitus -Hyperlipidemia -Hypertension -Sleep apnea Hospital course:62-year-old the female came in with complains of bladder, upper quadrant abdominal pain severe patient has some chronic abdominal pain much worse for last couple days appears to be muscular skeletal patient elicits like a muscle pull. Patient had a CAT scan of the abdomen which did not show any pulmonary embolism abdominal ultrasound did not show any significant abnormality. Patient's abdominal pain is not related to food constant pain no aggravating or relieving factors. Patient denied any fever chills. Gradually improves with muscle relaxants. 08/20/2018 Patient pain appears to be better today mostly for [place] skeletal related to muscle relaxants and since his creatinine is improving continue to hydrate him continue to hold NADIA inhibitor patient is hyperkalemic will give capsulate will recheck the basic metabolic profile tomorrow asked him to avoid the Dilaudid today continue with tramadol. If patient's pain is better if creatinine and potassium are better patient probably can be discharged tomorrow I'll leave the addition of obtaining an abdominal CAT scan to general surgery 08/21/2018, continued improvement in renal function with creatinine 1.17 . right -sided costal tenderness, worsened with movement.Patient states had significant coughing in the earlier part of the month and attributes his rib pain to that. CAT scan of the chest showed no definite abnormalities. Ultrasound limited exam, showed no gallstones. Reports improvement with muscle relaxants. Evaluated further by surgery with no surgical intervention, no further radiology testing recommended at this time. Cleared by surgery for discharge. Patient is being discharged home in a stable condition with guarded prognosis. EXAMINATION: GENERAL: The patient is alert and oriented x3, no acute distress. CARDIOVASCULAR: S1 and S2 present. No murmurs, rubs, or gallops. PULMONARY: Chest is clear to auscultation, no wheezing or crackles. ABDOMEN: Right costal tenderness, nondistended, no abdominal tenderness, positive bowel sounds NEUROLOGICAL: Gross neurological examination did not reveal any focal deficits. The impression and plan of care has been dictated as directed. : I performed a history and examination of this patient, discussed the same with the dictator. I agree with the dictator's note ,documented as a scribe. Any additional findings or plans will be noted. Time taken: 35 minutes Patient Condition at Discharge: Stable Plan - Discharge Summary Discharge Rx Participant: No New Discharge Prescriptions: New Cyclobenzaprine [Flexeril] 5 mg PO TID PRN #20 tab PRN Reason: Muscle Spasm Pantoprazole [Protonix] 40 mg PO BID #60 tablet. HYDROcodone/APAP 5-325MG [[place] 5-325] 1 tab PO Q6HR PRN 3 Days #12 tab PRN Reason: Pain traMADol HCL [Ultram] 50 mg PO Q6HR PRN 3 Days #12 tab PRN Reason: Pain Continue metFORMIN HCL [Glucophage] 500 mg PO W/SUPPER Atorvastatin [Lipitor] 20 mg PO W/SUPPER Allopurinol [Zyloprim] 200 mg PO W/SUPPER Magnesium Oxide [Mag-Ox] 800 mg PO W/SUPPER Diltiazem Cd [Cardizem CD] 300 mg PO W/SUPPER Citalopram Hydrobromide [CeleXA] 20 mg PO W/SUPPER Discontinued Lisinopril [Zestril] 10 mg PO W/SUPPER Discharge Medication List Atorvastatin [Lipitor] 20 mg PO W/SUPPER 07/15/14 [History] metFORMIN HCL [Glucophage] 500 mg PO W/SUPPER 07/15/14 [History] Allopurinol [Zyloprim] 200 mg PO W/SUPPER 03/05/16 [History] Citalopram Hydrobromide [CeleXA] 20 mg PO W/SUPPER 08/19/18 [History] Diltiazem Cd [Cardizem CD] 300 mg PO W/SUPPER 08/19/18 [History] Magnesium Oxide [Mag-Ox] 800 mg PO W/SUPPER 08/19/18 [History] Cyclobenzaprine [Flexeril] 5 mg PO TID PRN #20 tab 08/21/18 [Rx] HYDROcodone/APAP 5-325MG [[place] 5-325] 1 tab PO Q6HR PRN 3 Days #12 tab [Rx] Pantoprazole [Protonix] 40 mg PO BID #60 tablet. 08/21/18 [Rx] traMADol HCL [Ultram] 50 mg PO Q6HR PRN 3 Days #12 tab 08/21/18 [Rx] Follow up Appointment(s)/Referral(s): Jose Green MD [Primary Care Provider] - 08/25/18 8:40 am Ambulatory/Diagnostic Orders: Basic Metabolic Panel [LAB.AMB] Time Frame: 3 Days, Location: None Selected Patient Instructions/Handouts: Hydrocodone/Acetaminophen (By mouth), Cyclobenzaprine (By mouth), Tramadol (By mouth), Pantoprazole (By mouth), Biliary Colic (GEN), Hyperkalemia (DC), Acute Abdominal Pain (DC) Discharge Disposition: HOME SELF-CARE
== END 2018-08-21 16:00 | disposition home or self-care (01) ==
LOC: EC 02:56 → 3NMEDONC 12:58
PROVIDERS: ADMIT Internal Medicine; ATTEND Internal Medicine
DX: R10.11 Right upper quadrant pain (principal); T46.4X5A Adverse effect of angiotensin-converting-enzyme inhibitors, initial encounter; N18.2 Chronic kidney disease, stage 2 (mild); N17.9 Acute kidney failure, unspecified; I12.9 Hypertensive chronic kidney disease with stage 1 through stage 4 chronic kidney disease, or unspecified chronic kidney disease; G89.29 Other chronic pain; G47.33 Obstructive sleep apnea (adult) (pediatric); M10.9 Gout, unspecified; E11.42 Type 2 diabetes mellitus with diabetic polyneuropathy; J06.9 Acute upper respiratory infection, unspecified; E87.5 Hyperkalemia; E78.5 Hyperlipidemia, unspecified; E66.9 Obesity, unspecified; E11.22 Type 2 diabetes mellitus with diabetic chronic kidney disease; W19.XXXA Unspecified fall, initial encounter; Z79.84 Long term (current) use of oral hypoglycemic drugs; Z79.899 Other long term (current) drug therapy; Z68.43 Body mass index [BMI] 50.0-59.9, adult; Z99.89 Dependence on other enabling machines and devices; Z82.49 Family history of ischemic heart disease and other diseases of the circulatory system
CPT/HCPCS: 96376 ×4; 96361 ×2; 96375 ×2; 96374; 99285; 36415; 85379; 83880; 80053 ×2; 80048; 82150 ×2; 83690 ×2; 85025 ×2; 85610; 85730; 83036; 76705; 71275; G0378 ×3; J2270; J1170 ×4; C9113 ×2; Q9967

== ENCOUNTER 2018-12-01 10:26 | Emergency (ER) | payer OTHER ==
[2018-12-01] MEDS ORDERED: SODIUM CHLORIDE 0.9% 500 ML 500 ML IV STA (10:38)
[2018-12-01 10:43] LABS: Glucose,Whole Blood 175 mg/dL (75-99)
--- NOTE | 2018-12-01 11:09 | ED ---
Dizziness HPI - General Chief Complaint: Dizziness Stated Complaint: generalized weakness, lightheaded, fatigue Time Seen by Provider: 12/01/18 10:37 Source: patient Mode of arrival: wheelchair Limitations: no limitations - History of Present Illness Initial Comments: 63-year-old male presenting for complaints of generalized weakness on the lightheaded sensation dysuria urgency and hesitancy. Patient states for the past 2-3 weeks he has felt weak with occasional lightheaded sensation when going from seated to standing, he denies this being dizziness or sensation of room spinning. Pt states he has occasional headache. Pt denies known prostate disea se, fever or chills night sweats chest pain shortness of breath chest breath on exertion. Pt states he occasionally experiences leg swelling on and off for months. Denies current. Pt denies cough, hemoptysis, recent travel or recent surgeries, denies history of DVT/PE. Remaining ROS (-). Upon arrival pt VS stable he appears well, nontoxic. No distress. - Related Data Home Medications Medication Instructions Recorded Confirmed RX: Atorvastatin [Lipitor] 20 mg PO W/SUPPER 07/15/14 12/01/18 RX: metFORMIN HCL [Glucophage] 500 mg PO W/SUPPER 07/15/14 12/01/18 RX: Allopurinol [Zyloprim] 200 mg PO W/SUPPER 03/05/16 12/01/18 RX: Citalopram Hydrobromide 20 mg PO W/SUPPER 08/19/18 12/01/18 [CeleXA] RX: Diltiazem Cd [Cardizem CD] 300 mg PO W/SUPPER 08/19/18 12/01/18 RX: Magnesium Oxide [Mag-Ox] 800 mg PO W/SUPPER 08/19/18 12/01/18 Previous Rx's Medication Instructions Recorded Cephalexin [Keflex] 500 mg PO Q6HR 7 Days #28 cap 12/01/18 Allergies Allergy/AdvReac Type Severity Reaction Status Date / Time No Known Allergies Allergy Verified 12/01/18 10:57 Review of Systems ROS Statement: Those systems with pertinent positive or pertinent negative responses have been documented in the HPI. ROS Other: All systems not noted in ROS Statement are negative. 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 Past Anesthesia/Blood Transfusion Reactions: No Reported Reaction Past Psychological History: Depression Smoking Status: Never smoker Past Alcohol Use History: Rare Past Drug Use History: None Reported - Past Family History Father Family Medical History: Coronary Artery Disease (CAD) Additional Family Medical History / Comment(s): Father while on the list fo r a heart donation. He had CABG twice. Mother Family Medical History: Coronary Artery Disease (CAD), Hypertension, Renal Disease Additional Family Medical History / Comment(s): Mother had CABG. She lived to be 97yrs old. General Exam - General Exam Comments Initial Comments: General: The patient is awake and alert, in no distress, and does not appear acutely ill. Eye: +3 mm pupils are equal, round and reactive to light, extra-ocular movements are intact. No nystagmus. There is normal conjunctiva bilaterally. No signs of icterus. No photophobia Ears, nose, mouth and throat: There are moist mucous membranes and no oral lesions. Oropharynx was not erythematous there is no tonsillar enlargement exudates or lesions. Uvula midline. Tympanic membranes are not erythematous or is no effusions bulging or retraction. No tenderness to palpation of the mastoid. No anterior cervical lymphadenopathy. No tripoding, no drooling. Neck: The neck is supple, there is no tenderness or JVD. No nuchal rigidity Cardiovascular: There is a regular rate and rhythm. No murmur, rub or gallop is appreciated. Respiratory: Lungs are clear to auscultation, respirations are non-labored, breath sounds are equal. No wheezes, stridor, rales, or rhonchi. No retractions or abdominal breathing. Gastrointestinal: Soft, non-distended, non-tender abdomen without masses or organomegaly noted. There is no rebound or guarding present. Bowel sounds are unremarkable. Musculoskeletal: Normal ROM, no tenderness. Strength 5/5. Sensation intact. Radial pulses equal bilaterally 2+. Neurological: A&O x 3. CN II-XII intact, There are no obvious motor or sensory deficits. Coordination appears grossly intact. Speech appears normal, no muffling. Skin: Skin is warm and dry and no rashes or lesions are noted. No extremity edema Psychiatric: Cooperative Limitations: no limitations Course Vital Signs 12/01/18 12/01/18 12/01/18 10:29 11:00 11:30 Temperature 98.6 F Pulse Rate 64 55 L 57 L Respiratory 20 18 18 Rate Blood Pressure 156/78 139/75 134/75 O2 Sat by Pulse 96 97 Oximetry 12/01/18 12/01/18 12/01/18 12:00 12:30 13:00 Temperature 98.0 F Pulse Rate 57 L 62 57 L Respiratory 16 18 18 Rate Blood Pressure 133/72 133/72 131/67 O2 Sat by Pulse 96 97 97 Oximetry EKG Findings - EKG Comments: EKG Findings:: A 12-lead EKG was performed and shows the following: Rate is 57bpm, and rhythm is sinus bradycardia with first-degree AV block. Left axis noted. There are normal QRS complexes and normal R-wave progression. ST segments have no elevation or depression. MD interval 218 ms, QRS duration 98 ms, QT/QTC 42/391 ms. EKG was interpreted by myself as well as attending provider Dr. Freed. Medical Decision Making - Medical Decision Making Appearing 63-year-old male presenting for weak generalized weakness, lightheaded sensation. Patient has urinary symptoms. Urinary tract infection upon urinalysis. Positive nitrates and white blood cells. Patient given 1 g IV push of ceftriaxone. Remaining studies unremarkable. Patient has no leukocytosis. There is no pain or patient the mastoid. CT without without contrast of the brain was obtained revealing no acute abdominal mallet E this obtained due to generalized weakness complaint without of headache. Patient has no focal neurological deficits. EKG no acute findings. Troponin negative. Patient denies chest pain he denies any exertional chest pain or shortness of breath. No suspicion for ACS at this time. I discussed the case with attending provider Dr. Freed who reviewed EKG, imaging and laboratory studies. I reviewed CXR personally. After discussing findings with patient he is agreeable with outpatient f/u and treatment of UTI with abx. Current patient to see a urologist for further evaluation for cause of urinary tract infection in male. pt was understanding of return from. Patient was discharged appearing well - Lab Data Result diagrams: 12/01/18 11:31 12/01/18 11:31 Lab Results 12/01/18 12/01/18 12/01/18 Range/Units 10:39 11:31 11:31 WBC 8.8 (3.8-10.6) k/uL RBC 4.29 L (4.30-5.90) m/uL Hgb 12.6 L (13.0-17.5) gm/dL Hct 39.2 (39.0-53.0) % MCV 91.5 (80.0-100.0) fL MCH 29.5 (25.0-35.0) pg MCHC 32.2 (31.0-37.0) g/dL RDW 14.1 (11.5-15.5) % Plt Count 345 (150-450) k/uL Neutrophils % 67 % Lymphocytes % 22 % Monocytes % 7 % Eosinophils % 2 % Basophils % 0 % Neutrophils # 5.9 (1.3-7.7) k/uL Lymphocytes # 2.0 (1.0-4.8) k/uL Monocytes # 0.6 (0-1.0) k/uL Eosinophils # 0.2 (0-0.7) k/uL Basophils # 0.0 (0-0.2) k/uL PT (9.0-12.0) sec INR (<1.2) Sodium 139 (137-145) mmol/L Potassium 4.8 (3.5-5.1) mmol/L Chloride 106 (98-107) mmol/L Carbon Dioxide 24 (22-30) mmol/L Anion Gap 9 mmol/L BUN 26 H (9-20) mg/dL Creatinine 1.31 H (0.66-1.25) mg/dL Est GFR (CKD-EPI)AfAm 66 (>60 ml/min/1.73 sqM) Est GFR (CKD-EPI)NonAf 57 (>60 ml/min/1.73 sqM) Glucose 151 H (74-99) mg/dL POC Glucose (mg/dL) 175 H (75-99) mg/dL POC Glu Pressure Steamer Tender ID Samm Ivan Plasma Lactic Acid [place] (0.7-2.0) mmol/L Calcium 9.8 (8.4-10.2) mg/dL Magnesium 1.8 (1.6-2.3) mg/dL Total Bilirubin 0.3 (0.2-1.3) mg/dL AST 20 (17-59) U/L ALT 31 (21-72) U/L Alkaline Phosphatase 90 (38-126) U/L Troponin I (0.000-0.034) ng/mL NT-Pro-B Natriuret Pep pg/mL Total Protein 7.0 (6.3-8.2) g/dL Albumin 3.8 (3.5-5.0) g/dL Urine Color Urine Appearance (Clear) Urine pH (5.0-8.0) Ur Specific [place] (1.001-1.035) Urine Protein (Negative) Urine Glucose (UA) (Negative) Urine Ketones (Negative) Urine Blood (Negative) Urine Nitrite (Negative) Urine Bilirubin (Negative) Urine Urobilinogen (<2.0) mg/dL Ur Leukocyte Esterase (Negative) Urine RBC (0-5) /hpf Urine WBC (0-5) /hpf Ur Squamous Epith Cells (0-4) /hpf Urine Bacteria (None) /hpf Urine Mucus (None) /hpf 12/01/18 12/01/18 12/01/18 Range/Units 11:31 11:31 11:31 WBC (3.8-10.6) k/uL RBC (4.30-5.90) m/uL Hgb (13.0-17.5) gm/dL Hct (39.0-53.0) % MCV (80.0-100.0) fL MCH (25.0-35.0) pg MCHC (31.0-37.0) g/dL RDW (11.5-15.5) % Plt Count (150-450) k/uL Neutrophils % % Lymphocytes % % Monocytes % % Eosinophils % % Basophils % % Neutrophils # (1.3-7.7) k/uL Lymphocytes # (1.0-4.8) k/uL Monocytes # (0-1.0) k/uL Eosinophils # (0-0.7) k/uL Basophils # (0-0.2) k/uL PT 9.4 (9.0-12.0) sec INR 0.8 (<1.2) Sodium (137-145) mmol/L Potassium (3.5-5.1) mmol/L Chloride (98-107) mmol/L Carbon Dioxide (22-30) mmol/L Anion Gap mmol/L BUN (9-20) mg/dL Creatinine (0.66-1.25) mg/dL Est GFR (CKD-EPI)AfAm (>60 ml/min/1.73 sqM) Est GFR (CKD-EPI)NonAf (>60 ml/min/1.73 sqM) Glucose (74-99) mg/dL POC Glucose (mg/dL) (75-99) mg/dL POC Glu Pressure Steamer Tender ID Plasma Lactic Acid [place] 1.5 (0.7-2.0) mmol/L Calcium (8.4-10.2) mg/dL Magnesium (1.6-2.3) mg/dL Total Bilirubin (0.2-1.3) mg/dL AST (17-59) U/L ALT (21-72) U/L Alkaline Phosphatase (38-126) U/L Troponin I <0.012 (0.000-0.034) ng/mL NT-Pro-B Natriuret Pep pg/mL Total Protein (6.3-8.2) g/dL Albumin (3.5-5.0) g/dL Urine Color Urine Appearance (Clear) Urine pH (5.0-8.0) Ur Specific [place] (1.001-1.035) Urine Protein (Negative) Urine Glucose (UA) (Negative) Urine Ketones (Negative) Urine Blood (Negative) Urine Nitrite (Negative) Urine Bilirubin (Negative) Urine Urobilinogen (<2.0) mg/dL Ur Leukocyte Esterase (Negative) Urine RBC (0-5) /hpf Urine WBC (0-5) /hpf Ur Squamous Epith Cells (0-4) /hpf Urine Bacteria (None) /hpf Urine Mucus (None) /hpf 12/01/18 12/01/18 Range/Units 11:31 12:36 WBC (3.8-10.6) k/uL RBC (4.30-5.90) m/uL Hgb (13.0-17.5) gm/dL Hct (39.0-53.0) % MCV (80.0-100.0) fL MCH (25.0-35.0) pg MCHC (31.0-37.0) g/dL RDW (11.5-15.5) % Plt Count (150-450) k/uL Neutrophils % % Lymphocytes % % Monocytes % % Eosinophils % % Basophils % % Neutrophils # (1.3-7.7) k/uL Lymphocytes # (1.0-4.8) k/uL Monocytes # (0-1.0) k/uL Eosinophils # (0-0.7) k/uL Basophils # (0-0.2) k/uL PT (9.0-12.0) sec INR (<1.2) Sodium (137-145) mmol/L Potassium (3.5-5.1) mmol/L Chloride (98-107) mmol/L Carbon Dioxide (22-30) mmol/L Anion Gap mmol/L BUN (9-20) mg/dL Creatinine (0.66-1.25) mg/dL Est GFR (CKD-EPI)AfAm (>60 ml/min/1.73 sqM) Est GFR (CKD-EPI)NonAf (>60 ml/min/1.73 sqM) Glucose (74-99) mg/dL POC Glucose (mg/dL) (75-99) mg/dL POC Glu Pressure Steamer Tender ID Plasma Lactic Acid [place] (0.7-2.0) mmol/L Calcium (8.4-10.2) mg/dL Magnesium (1.6-2.3) mg/dL Total Bilirubin (0.2-1.3) mg/dL AST (17-59) U/L ALT (21-72) U/L Alkaline Phosphatase (38-126) U/L Troponin I (0.000-0.034) ng/mL NT-Pro-B Natriuret Pep 192 pg/mL Total Protein (6.3-8.2) g/dL Albumin (3.5-5.0) g/dL Urine Color Light Yellow Urine Appearance Clear (Clear) Urine pH 6.5 (5.0-8.0) Ur Specific [place] 1.015 (1.001-1.035) Urine Protein Trace H (Negative) Urine Glucose (UA) Negative (Negative) Urine Ketones Negative (Negative) Urine Blood Negative (Negative) Urine Nitrite Positive (Negative) Urine Bilirubin Negative (Negative) Urine Urobilinogen <2.0 (<2.0) mg/dL Ur Leukocyte Esterase Moderate H (Negative) Urine RBC 3 (0-5) /hpf Urine WBC 32 H (0-5) /hpf Ur Squamous Epith Cells 1 (0-4) /hpf Urine Bacteria Rare H (None) /hpf Urine Mucus Rare H (None) /hpf Disposition Clinical Impression: UTI (urinary tract infection), Dysuria, Lightheaded Disposition: HOME SELF-CARE Condition: Good Instructions (If sedation given, give patient instructions): Urinary Tract Infection in Men (ED), Lightheadedness (ED) Additional Instructions: Please use medication as discussed. Please follow-up with family doctor in the next 2 days. Please follow-up with urology for further evaluation of the UTI. Please return to emergency room if the symptoms increase or worsen or for any other concerns. Prescriptions: Cephalexin [Keflex] 500 mg PO Q6HR 7 Days #28 cap Is patient prescribed a controlled substance at d/c from ED?: No Referrals: Jose Green MD [Primary Care Provider] - 1-2 days Brian Ayers MD [STAFF PHYSICIAN] - 1-2 days Time of Disposition: 13:01
[2018-12-01 11:46] LABS: Basophils % (A) 0 %; Eosinophils # (A) 0.2 k/uL (0-0.7); Eosinophils % (A) 2 %; HCT 39.2 % (39.0-53.0); HGB 12.6 gm/dL (13.0-17.5); Lymphocytes % (A) 22 %; MCH 29.5 pg (25.0-35.0); MCHC 32.2 g/dL (31.0-37.0); MCV 91.5 fL (80.0-100.0); Mean Platelet Volume 7.2; Monocytes # (A) 0.6 k/uL (0-1.0); Monocytes % (A) 7 %; Neutrophils # (A) 5.9 k/uL (1.3-7.7); Neutrophils % (A) 67 %; Platelet Count 345 k/uL (150-450); RBC 4.29 m/uL (4.30-5.90); RDW 14.1 % (11.5-15.5); WBC 8.8 k/uL (3.8-10.6)
[2018-12-01 11:54] LABS: Albumin 3.8 g/dL (3.5-5.0); Calcium 9.8 mg/dL (8.4-10.2); Magnesium 1.8 mg/dL (1.6-2.3); Potassium 4.8 mmol/L (3.5-5.1); Total Bilirubin 0.3 mg/dL (0.2-1.3)
[2018-12-01 12:01] LABS: INR 0.8 (<1.2); Prothrombin Time 9.4 sec (9.0-12.0)
[2018-12-01 12:02] VITALS: PULSE 57
--- NOTE | 2018-12-01 12:05 | CT ---
EXAMINATION TYPE: CT brain wo con DATE OF EXAM: 12/01/2018 COMPARISON: None HISTORY: 63-year-old male Dizziness, weakness TECHNIQUE: Examination was done in axial plane without intravenous contrast. Coronal and sagittal r econstructions performed. CT DLP: 1119.4 mGycm Automated exposure control for dose reduction was used. FINDINGS: There is no evidence of acute intracranial hemorrhage, acute ischemic changes, mass, mass-effect, or extra-axial fluid collection. There is no effacement of cerebral sulci or basal subarachnoid cister ns. There is no hydrocephalus. There is no midline shift. [place]-white matter distinction is preserv ed. Mild cerebral cortical volume loss. Small amount of partial opacification inferior left mastoid air cells. Mild lobulated mucosal thicken ing floors of the maxillary sinuses. Partial opacification left sphenoid sinus and rightward nasal se ptal deviation is demonstrated. Orbits and globes are intact. IMPRESSION: 1. No acute intracranial abnormality seen. 2. Small amount of trapped fluid within the inferior left mastoid air cells. Correlate for any mastoi d pain to exclude mastoiditis. 3. Mild chronic paranasal sinus disease.
--- NOTE | 2018-12-01 12:07 | XR ---
EXAMINATION TYPE: XR chest 2V DATE OF EXAM: 12/01/2018 COMPARISON: Correlation CT 08/19/2018 HISTORY: 63-year-old male with dizziness and nausea TECHNIQUE: PA and lateral views FINDINGS: There is moderate enlargement of the cardiac/pericardiac silhouette. Some strandy areas of atelectasi s mid and lower lungs. No consolidation or pleural effusion seen. Lung volumes are low. IMPRESSION: Moderate enlargement of the cardiac/pericardiac silhouette. This seems to correspond at least in part to a large epicardial fat pad. Strandy areas of atelectasis. No definite acute process otherwise ashutosh ntified.
[2018-12-01 12:50] LABS: Appearance,Urine Clear (Clear); Bacteria,Urine Rare /hpf; Bilirubin,Urine Negative (Negative); Blood,Urine Negative (Negative); Color,Urine Light Yellow; Glucose,Urine (UA) Negative (Negative); Ketones,Urine Negative (Negative); Leukocyte Esterase,Urine Moderate (Negative); Mucus,Urine Rare /hpf; Nitrite,Urine Positive (Negative); PH, Urine 6.5 (5.0-8.0); Protein,Urine Trace (Negative); RBC,Urine 3 /hpf (0-5); Specific Gravity,Urine 1.015 (1.001-1.035); Squamous Epithelial Cell,Urine 1 /hpf (0-4); Urobilinogen,Urine <2.0 mg/dL (<2.0); WBC,Urine 32 /hpf (0-5)
[2018-12-01] MEDS ORDERED: cefTRIAXone IN SWFI 1,000 MG/10 ML SYRINGE IVP STA (13:03)
[2018-12-01] MEDS ORDERED: ONDANSETRON 4 MG/2 ML VIAL IVP STA (13:03)
[2018-12-01 13:19] VITALS: BP 131/67; RESP 18; TEMP 98
== END 2018-12-01 13:31 | disposition home or self-care (01) ==
LOC: EC 10:26
DX: N39.0 Urinary tract infection, site not specified (principal); R42 Dizziness and giddiness; I44.0 Atrioventricular block, first degree; E11.22 Type 2 diabetes mellitus with diabetic chronic kidney disease; I12.9 Hypertensive chronic kidney disease with stage 1 through stage 4 chronic kidney disease, or unspecified chronic kidney disease; N18.9 Chronic kidney disease, unspecified; E78.5 Hyperlipidemia, unspecified; I10 Essential (primary) hypertension; G47.33 Obstructive sleep apnea (adult) (pediatric); F32.9 Major depressive disorder, single episode, unspecified; Z79.84 Long term (current) use of oral hypoglycemic drugs; Z79.899 Other long term (current) drug therapy
CPT/HCPCS: 36415; 93005; 83880; 80053; 83605; 83735; 84484; 85025; 85610; 81001; 87040; 71046; 70450; 99284; 96374; 96375; J2405; J0696

== ENCOUNTER 2018-12-19 17:09 | Emergency (ER) | payer OTHER ==
[2018-12-19 17:28] VITALS: RESP 18
--- NOTE | 2018-12-19 18:20 | ED ---
General Adult HPI - General Chief complaint: Urogenital Stated complaint: bladder infection/ankle pain Time Seen by Provider: 12/19/18 17:51 Source: patient, RN notes reviewed Mode of arrival: wheelchair Limitations: physical limitation - History of Present Illness Initial comments: 63-year-old male with a past medical history of diabetes mellitus type 2, hyperlipidemia, hypertension, neuropathy, CK D presents to the emergency department for a chief complaint of fall. Patient states that 2 days ago he slipped in his bathroom and fell on his uncle. States he has been ambulating on the right ankle but it is painful. States the lateral aspect is the worst. She did fall on his left hip as well but states he is not having any pain ambulating and does not need x-rays of this. He did not hit his head or lose consciousness. No dizziness preceding this fall. Patient is also concerned he has a urinary tract infection. States he had one a few weeks ago and he had urinary urgency and frequency at that time. States he was treated with antibiotics and he now feels it back again. States he did not properly follow- up as they have directed.Patient has no other complaints at this time including shortness of breath, chest pain, abdominal pain, nausea or vomiting, headache, or visual changes. - Related Data Home Medications Medication Instructions Recorded Confirmed Atorvastatin [Lipitor] 20 mg PO W/SUPPER 07/15/14 12/01/18 metFORMIN HCL [Glucophage] 500 mg PO W/SUPPER 07/15/14 12/01/18 Allopurinol [Zyloprim] 200 mg PO W/SUPPER 03/05/16 12/01/18 Citalopram Hydrobromide [CeleXA] 20 mg PO W/SUPPER 08/19/18 12/01/18 Diltiazem Cd [Cardizem CD] 300 mg PO W/SUPPER 08/19/18 12/01/18 Magnesium Oxide [Mag-Ox] 800 mg PO W/SUPPER 08/19/18 12/01/18 Previous Rx's Medication Instructions Recorded Cephalexin [Keflex] 500 mg PO Q6HR 7 Days #28 cap 12/01/18 Sulfamethox-Tmp 800-160Mg [Bactrim 1 tab PO Q12HR #20 tab 12/19/18 DS 800-160 mg] Allergies Allergy/AdvReac Type Severity Reaction Status Date / Time No Known Allergies Allergy Verified 12/19/18 17:28 Review of Systems ROS Statement: Those systems with pertinent positive or pertinent negative responses have been documented in the HPI. ROS Other: All systems not noted in ROS Statement are negative. 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 Past Anesthesia/Blood Transfusion Reactions: No Reported Reaction Past Psychological History: Depression Smoking Status: Never smoker Past Alcohol Use History: Rare Past Drug Use History: None Reported - Past Family History Father Family Medical History: Coronary Artery Disease (CAD) Additional Family Medical History / Comment(s): Father while on the list for a heart donation. He had CABG twice. Mother Family Medical History: Coronary Artery Disease (CAD), Hypertension, Renal Disease Additional Family Medical History / Comment(s): Mother had CABG. She lived to be 97yrs old. General Exam - General Exam Comments Initial Comments: Right ankle: Patient has tenderness to the lateral malleolus with mild edema present. DP pulse 2+ and capillary refill less than 2 seconds. Sensation intact. Patient has full range of motion of the ankle but pain with inversion of the right foot. No tenderness noted in the foot including the fifth metatarsal dorsum of the foot, navicular. Left hip: Full range of motion in flexion and extension. Ambulatory. Neurovascular status intact with a capillary refill less than 2 seconds, DP pulse 2+. No tenderness noted to the left hip. No ecchymosis. Limitations: physical limitation General appearance: alert, in no apparent distress Head exam: Present: atraumatic, normocephalic, normal inspection Eye exam: Present: normal appearance, PERRL, EOMI. Absent: scleral icterus, conjunctival injection, periorbital swelling ENT exam: Present: normal exam, mucous membranes moist Neck exam: Present: normal inspection, full ROM. Absent: tenderness, meningismus, lymphadenopathy Respiratory exam: Present: normal lung sounds bilaterally. Absent: respiratory distress, wheezes, rales, rhonchi, stridor Cardiovascular Exam: Present: regular rate, normal rhythm, normal heart sounds. Absent: systolic murmur, diastolic murmur, rubs, gallop, clicks GI/Abdominal exam: Present: soft, normal bowel sounds. Absent: distended, tenderness, guarding, rebound, rigid Neurological exam: Present: alert, oriented X3, CN II-XII intact Psychiatric exam: Present: normal affect, normal mood Course Vital Signs 12/19/18 17:25 Temperature 99.0 F Pulse Rate 77 Respiratory 18 Rate Blood Pressure 122/70 O2 Sat by Pulse 98 Oximetry Medical Decision Making - Medical Decision Making 63-year-old male presents to the emergency department for chief woman of right ankle pain. Patient fell when getting out of the bathtub in the bathroom 2 days ago. Has had pain to the right ankle since that time but is able to ambulate on it. On exam patient does have mild edema noted of the lateral malleolus. Also some tenderness. No tenderness to the right foot. 3 negative, likely a sprain. Patient put in a stirrup splint and recommended follow-up with orthopedics. Patient also complaining of urinary urgency and frequency. States this feels like a previous UTI. Denies any fevers or chills. Patient was put on Keflex about 2 weeks ago. States it started to feel better but worsened again. No culture that I can see. Patient will be started on Bactrim. However did recommend repeat urinalysis in about a week. Recommended returning if he has any fevers or flank pain. Recommended following up with primary care for any worsening symptoms. Vitals are stable, patient is afebrile. - Lab Data Lab Results 12/19/18 Range/Units 18:06 Urine Color Light Yellow Urine Appearance Cloudy (Clear) Urine pH 6.0 (5.0-8.0) Ur Specific [place] 1.019 (1.001-1.035) Urine Protein Trace H (Negative) Urine Glucose (UA) Negative (Negative) Urine Ketones Negative (Negative) Urine Blood Small H (Negative) Urine Nitrite Positive (Negative) Urine Bilirubin Negative (Negative) Urine Urobilinogen <2.0 (<2.0) mg/dL Ur Leukocyte Esterase Large H (Negative) Urine RBC 5 (0-5) /hpf Urine WBC >182 H (0-5) /hpf Urine WBC Clumps Many H (None) /hpf Ur Squamous Epith Cells 1 (0-4) /hpf Amorphous Sediment Rare H (None) /hpf Disposition Clinical Impression: Ankle sprain, Urinary tract infection Disposition: HOME SELF-CARE Condition: Good Instructions (If sedation given, give patient instructions): Urinary Tract Infection in Men (ED), Arthralgia (ED) Additional Instructions: Please take Motrin and Tylenol for pain. Please use ankle stirrup. Take antibiotic as directed. Return here if you have any fevers or flank pain. Follow up with primary care and ortho in 1-2 days. Return here to the emergency department if you have any worsening symptoms Prescriptions: Sulfamethox-Tmp 800-160Mg [Bactrim DS 800-160 mg] 1 tab PO Q12HR #20 tab Is patient prescribed a controlled substance at d/c from ED?: No Referrals: Jose Green MD [Primary Care Provider] - 1-2 days Joon Pina MD [Medical Doctor] - 1-2 days Time of Disposition: 19:10
[2018-12-19 18:22] LABS: Amorphous Sediment,Urine Rare /hpf; Appearance,Urine Cloudy (Clear); Bilirubin,Urine Negative (Negative); Blood,Urine Small (Negative); Color,Urine Light Yellow; Glucose,Urine (UA) Negative (Negative); Ketones,Urine Negative (Negative); Leukocyte Esterase,Urine Large (Negative); Nitrite,Urine Positive (Negative); Protein,Urine Trace (Negative); RBC,Urine 5 /hpf (0-5); Specific Gravity,Urine 1.019 (1.001-1.035); Squamous Epithelial Cell,Urine 1 /hpf (0-4); Urobilinogen,Urine <2.0 mg/dL (<2.0); WBC,Urine >182 /hpf (0-5)
--- NOTE | 2018-12-19 18:22 | XR ---
EXAMINATION TYPE: XR ankle complete RT DATE OF EXAM: 12/19/2018 COMPARISON: NONE HISTORY: Ankle pain TECHNIQUE: 3 views FINDINGS: There is soft tissue swelling around the ankle joint. There is lateral soft tissue swelling . Ankle mortise is anatomic. There is anterior spurring at the talonavicular joint. I see no fracture . Subtalar joint is intact. IMPRESSION: Soft tissue swelling. No fracture seen.
[2018-12-19] MEDS ORDERED: Acetaminophen-Codeine 300-30mg TAB PO STA (19:11)
[2018-12-19] MEDS ORDERED: SULFAMETH-TMP DS STARTER PACK 2 TAB BTL PO STA (19:12)
[2018-12-19 19:28] VITALS: BP 140/74; PULSE 85; TEMP 97.8
== END 2018-12-19 19:27 | disposition home or self-care (01) ==
LOC: EC 17:09
DX: S93.401A Sprain of unspecified ligament of right ankle, initial encounter (principal); N39.0 Urinary tract infection, site not specified; E78.5 Hyperlipidemia, unspecified; I12.9 Hypertensive chronic kidney disease with stage 1 through stage 4 chronic kidney disease, or unspecified chronic kidney disease; N18.9 Chronic kidney disease, unspecified; E11.22 Type 2 diabetes mellitus with diabetic chronic kidney disease; E11.42 Type 2 diabetes mellitus with diabetic polyneuropathy; M10.9 Gout, unspecified; G47.33 Obstructive sleep apnea (adult) (pediatric); F32.9 Major depressive disorder, single episode, unspecified; Z79.84 Long term (current) use of oral hypoglycemic drugs; Z79.899 Other long term (current) drug therapy; Z99.89 Dependence on other enabling machines and devices; W01.0XXA Fall on same level from slipping, tripping and stumbling without subsequent striking against object, initial encounter; Y93.89 Activity, other specified; Y92.002 Bathroom of unspecified non-institutional (private) residence as the place of occurrence of the external cause
CPT/HCPCS: 29515; 81001; 87077; 87086; 87186; 99283

== ENCOUNTER 2019-01-15 10:25 | Emergency (ER) | payer OTHER ==
[2019-01-15] MEDS ORDERED: PANTOPRAZOLE 40 MG/10 ML VIAL IVP STA (10:37)
[2019-01-15] MEDS ORDERED: MORPHINE SULFATE 4 MG/ML SYRINGE IV STA (10:37)
[2019-01-15] MEDS ORDERED: SODIUM CHLORIDE 0.9% 1,000 ML IV STA (10:37)
[2019-01-15 10:38] VITALS: RESP 18; TEMP 98.9
--- NOTE | 2019-01-15 10:42 | ED ---
Back Pain HPI - General Chief Complaint: Back Pain/Injury Stated Complaint: Back pain Time Seen by Provider: 01/15/19 10:28 Source: patient, RN notes reviewed, old records reviewed Limitations: no limitations - History of Present Illness Initial Comments: Patient is a 63-year-old male presents emergency department today for violation for intermittent right flank pain for the past 6 months. Patient reports his been progressively worse over the past week. Patient states it seems to feel like muscle spasms and tenderness palpation over areas of his ribs. Patient denies any significant cough at this time. He has recently been treated for urinary tract infection. Patient has had no other recent fevers or chills. He denies any associated chest pain or significant shortness of breath. Patient states that he was evaluated in July when the symptoms started, and ruled out biliary colic at that time. - Related Data Home Medications Medication Instructions Recorded Confirmed Atorvastatin [Lipitor] 20 mg PO W/SUPPER 07/15/14 12/01/18 metFORMIN HCL [Glucophage] 500 mg PO W/SUPPER 07/15/14 12/01/18 Allopurinol [Zyloprim] 200 mg PO W/SUPPER 03/05/16 12/01/18 Citalopram Hydrobromide [CeleXA] 20 mg PO W/SUPPER 08/19/18 12/01/18 Diltiazem Cd [Cardizem CD] 300 mg PO W/SUPPER 08/19/18 12/01/18 Magnesium Oxide [Mag-Ox] 800 mg PO W/SUPPER 08/19/18 12/01/18 Previous Rx's Medication Instructions Recorded Cephalexin [Keflex] 500 mg PO Q6HR 7 Days #28 cap 12/01/18 Sulfamethox-Tmp 800-160Mg [Bactrim 1 tab PO Q12HR #20 tab 12/19/18 DS 800-160 mg] Cyclobenzaprine [Flexeril] 10 mg PO TID #20 tab 01/15/19 HYDROcodone/APAP 10-325MG [[place] 1 tab PO Q6H PRN #10 tab 01/15/19 10-325] Allergies Allergy/AdvReac Type Severity Reaction Status Date / Time No Known Allergies Allergy Verified 01/15/19 10:38 Review of Systems ROS Statement: Those systems with pertinent positive or pertinent negative responses have been documented in the HPI. ROS Other: All systems not noted in ROS Statement are negative. 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 Past Anesthesia/Blood Transfusion Reactions: No Reported Reaction Past Psychological History: Depression Smoking Status: Never smoker Past Alcohol Use History: Rare Past Drug Use History: None Reported - Past Family History Father Family Medical History: Coronary Artery Disease (CAD) Additional Family Medical History / Comment(s): Father while on the list for a heart donation. He had CABG twice. Mother Family Medical History: Coronary Artery Disease (CAD), Hypertension, Renal Disease Additional Family Medical History / Comment(s): Mother had CABG. She lived to be 97yrs old. General Exam - General Exam Comments Initial Comments: Morbidly obses 63 year old male, moderate discomfort. Limitations: no limitations General appearance: alert, in no apparent distress Head exam: Present: atraumatic, normocephalic, normal inspection Eye exam: Present: normal appearance, PERRL, EOMI. Absent: scleral icterus, conjunctival injection, periorbital swelling ENT exam: Present: normal exam, mucous membranes moist Neck exam: Present: normal inspection. Absent: tenderness, meningismus, lymphadenopathy Respiratory exam: Present: normal lung sounds bilaterally, other (tenderness over Right lower ribs No bruisng or lesions. ). Absent: respiratory distress, wheezes, rales, rhonchi, stridor Cardiovascular Exam: Present: regular rate, normal rhythm, normal heart sounds. Absent: systolic murmur, diastolic murmur, rubs, gallop, clicks GI/Abdominal exam: Present: soft, normal bowel sounds. Absent: distended, tenderness, guarding, rebound, rigid Extremities exam: Present: normal inspection, full ROM, normal capillary refill. Absent: tenderness, pedal edema, joint swelling, calf tenderness Neurological exam: Present: alert, oriented X3, CN II-XII intact Psychiatric exam: Present: normal affect, normal mood Skin exam: Present: warm, dry, intact, normal color. Absent: rash Course Vital Signs 01/15/19 01/15/19 10:33 14:39 Temperature 98.9 F Pulse Rate 68 67 Respiratory 18 18 Rate Blood Pressure 132/106 123/57 O2 Sat by Pulse 96 97 Oximetry Medical Decision Making - Medical Decision Making 63 year old male with right rib pain worse with movment, no abdominal or chest pain. Rib xray shows 8,[address] chest completed and shows small lung herniation, discussed patient follow up with cardiothoracic surgeon. Patient DC with incensive spirometer and pain medication. Discussed PCP follow up. - Lab Data Result diagrams: 01/15/19 10:46 01/15/19 10:46 Lab Results 01/15/19 01/15/19 01/15/19 Range/Units 10:46 10:46 10:46 WBC 7.8 (3.8-10.6) k/uL RBC 4.13 L (4.30-5.90) m/uL Hgb 12.0 L (13.0-17.5) gm/dL Hct 38.5 L (39.0-53.0) % MCV 93.2 (80.0-100.0) fL MCH 29.0 (25.0-35.0) pg MCHC 31.1 (31.0-37.0) g/dL RDW 14.6 (11.5-15.5) % Plt Count 324 (150-450) k/uL Neutrophils % 72 % Lymphocytes % 18 % Monocytes % 6 % Eosinophils % 2 % Basophils % 0 % Neutrophils # 5.6 (1.3-7.7) k/uL Lymphocytes # 1.4 (1.0-4.8) k/uL Monocytes # 0.4 (0-1.0) k/uL Eosinophils # 0.2 (0-0.7) k/uL Basophils # 0.0 (0-0.2) k/uL PT 9.4 (9.0-12.0) sec INR 0.8 (<1.2) APTT 19.2 L (22.0-30.0) sec Sodium 137 (137-145) mmol/L Potassium 5.5 H (3.5-5.1) mmol/L Chloride 106 (98-107) mmol/L Carbon Dioxide 19 L (22-30) mmol/L Anion Gap 12 mmol/L BUN 37 H (9-20) mg/dL Creatinine 1.31 H (0.66-1.25) mg/dL Est GFR (CKD-EPI)AfAm 66 (>60 ml/min/1.73 sqM) Est GFR (CKD-EPI)NonAf 57 (>60 ml/min/1.73 sqM) Glucose 168 H (74-99) mg/dL Calcium 9.7 (8.4-10.2) mg/dL Total Bilirubin 0.5 (0.2-1.3) mg/dL AST 20 (17-59) U/L ALT 21 (21-72) U/L Alkaline Phosphatase 85 (38-126) U/L Total Protein 7.3 (6.3-8.2) g/dL Albumin 3.9 (3.5-5.0) g/dL Amylase 92 (30-110) U/L Lipase 96 (23-300) U/L Urine Color Urine Appearance (Clear) Urine pH (5.0-8.0) Ur Specific [place] (1.001-1.035) Urine Protein (Negative) Urine Glucose (UA) (Negative) Urine Ketones (Negative) Urine Blood (Negative) Urine Nitrite (Negative) Urine Bilirubin (Negative) Urine Urobilinogen (<2.0) mg/dL Ur Leukocyte Esterase (Negative) Urine RBC (0-5) /hpf Urine WBC (0-5) /hpf Ur Squamous Epith Cells (0-4) /hpf Urine Mucus (None) /hpf 01/15/19 Range/Units 11:30 WBC (3.8-10.6) k/uL RBC (4.30-5.90) m/uL Hgb (13.0-17.5) gm/dL Hct (39.0-53.0) % MCV (80.0-100.0) fL MCH (25.0-35.0) pg MCHC (31.0-37.0) g/dL RDW (11.5-15.5) % Plt Count (150-450) k/uL Neutrophils % % Lymphocytes % % Monocytes % % Eosinophils % % Basophils % % Neutrophils # (1.3-7.7) k/uL Lymphocytes # (1.0-4.8) k/uL Monocytes # (0-1.0) k/uL Eosinophils # (0-0.7) k/uL Basophils # (0-0.2) k/uL PT (9.0-12.0) sec INR (<1.2) APTT (22.0-30.0) sec Sodium (137-145) mmol/L Potassium (3.5-5.1) mmol/L Chloride (98-107) mmol/L Carbon Dioxide (22-30) mmol/L Anion Gap mmol/L BUN (9-20) mg/dL Creatinine (0.66-1.25) mg/dL Est GFR (CKD-EPI)AfAm (>60 ml/min/1.73 sqM) Est GFR (CKD-EPI)NonAf (>60 ml/min/1.73 sqM) Glucose (74-99) mg/dL Calcium (8.4-10.2) mg/dL Total Bilirubin (0.2-1.3) mg/dL AST (17-59) U/L ALT (21-72) U/L Alkaline Phosphatase (38-126) U/L Total Protein (6.3-8.2) g/dL Albumin (3.5-5.0) g/dL Amylase (30-110) U/L Lipase (23-300) U/L Urine Color Yellow Urine Appearance Clear (Clear) Urine pH 5.5 (5.0-8.0) Ur Specific [place] 1.022 (1.001-1.035) Urine Protein Trace H (Negative) Urine Glucose (UA) Negative (Negative) Urine Ketones Negative (Negative) Urine Blood Negative (Negative) Urine Nitrite Negative (Negative) Urine Bilirubin Negative (Negative) Urine Urobilinogen <2.0 (<2.0) mg/dL Ur Leukocyte Esterase Trace H (Negative) Urine RBC <1 (0-5) /hpf Urine WBC 2 (0-5) /hpf Ur Squamous Epith Cells 1 (0-4) /hpf Urine Mucus Rare H (None) /hpf - Radiology Data Radiology results: report reviewed Rib xry shows displaced 8th rib fracture and healing 9th and 10th rib fracture. CT chest shows segmental fracture of R 8th rib with some periosteal callus laterally suggesting subacute fracture here. Posterior component to segmental fracture does not have callus and may have an acute component. Additional subacute healing fracture of posteriorlateral R 9th rib. Splaying of 7th in tercostal space secondly to focal lung herniation measuring 4.6cm by 2.4cm. Consideral referral to thoracic to potential mgmt for finding. Hydopoic gallbladder with cholelithiasis. Likely due to fasting state. Disposition Clinical Impression: Fracture of rib of right side with delayed healing Disposition: HOME SELF-CARE Condition: Good Instructions (If sedation given, give patient instructions): Rib Fracture (ED) Additional Instructions: Patient has a follow-up with your primary care physician and cardiothoracic surgeon. Patient should take pain medicine as prescribed. Use incentive spirometer. Follow-up with the cardiothoracic surgeon as well. Return to the emergency department if any alarming signs or symptoms occur. Prescriptions: Cyclobenzaprine [Flexeril] 10 mg PO TID #20 tab HYDROcodone/APAP 10-325MG [[place] 10-325] 1 tab PO Q6H PRN #10 tab PRN Reason: Pain Is patient prescribed a controlled substance at d/c from ED?: Yes If prescribed controlled substance>3 days was MAPS reviewed?: Prescribed <3 Days If opioid is for acute pain is fill amount 7 days or less?: Yes If Rx opioid, was Start Talking consent form obtained?: Yes Referrals: Jose Green MD [Primary Care Provider] - 1-2 days Daryl Gordon MD [STAFF PHYSICIAN] - 1-2 days Time of Disposition: 15:01
[2019-01-15 10:56] LABS: Basophils % (A) 0 %; Eosinophils # (A) 0.2 k/uL (0-0.7); Eosinophils % (A) 2 %; HCT 38.5 % (39.0-53.0); Lymphocytes # (A) 1.4 k/uL (1.0-4.8); Lymphocytes % (A) 18 %; MCHC 31.1 g/dL (31.0-37.0); MCV 93.2 fL (80.0-100.0); Mean Platelet Volume 6.9; Monocytes # (A) 0.4 k/uL (0-1.0); Monocytes % (A) 6 %; Neutrophils # (A) 5.6 k/uL (1.3-7.7); Neutrophils % (A) 72 %; Platelet Count 324 k/uL (150-450); RBC 4.13 m/uL (4.30-5.90); RDW 14.6 % (11.5-15.5); WBC 7.8 k/uL (3.8-10.6)
[2019-01-15 11:11] LABS: Albumin 3.9 g/dL (3.5-5.0); Calcium 9.7 mg/dL (8.4-10.2); Potassium 5.5 mmol/L (3.5-5.1); Total Bilirubin 0.5 mg/dL (0.2-1.3); Total Protein 7.3 g/dL (6.3-8.2)
[2019-01-15 11:12] LABS: INR 0.8 (<1.2); Prothrombin Time 9.4 sec (9.0-12.0)
[2019-01-15 11:16] LABS: Partial Thromboplastin Time 19.2 sec (22.0-30.0)
[2019-01-15 11:45] LABS: Appearance,Urine Clear (Clear); Bilirubin,Urine Negative (Negative); Blood,Urine Negative (Negative); Color,Urine Yellow; Glucose,Urine (UA) Negative (Negative); Ketones,Urine Negative (Negative); Leukocyte Esterase,Urine Trace (Negative); Mucus,Urine Rare /hpf; Nitrite,Urine Negative (Negative); PH, Urine 5.5 (5.0-8.0); Protein,Urine Trace (Negative); RBC,Urine <1 /hpf (0-5); Specific Gravity,Urine 1.022 (1.001-1.035); Squamous Epithelial Cell,Urine 1 /hpf (0-4); Urobilinogen,Urine <2.0 mg/dL (<2.0); WBC,Urine 2 /hpf (0-5)
--- NOTE | 2019-01-15 12:39 | XR ---
EXAMINATION TYPE: PA chest and right rib series DATE OF EXAM: 01/15/2019 COMPARISON: 12/01/[address] 08/19/2018 HISTORY: 63-year-old male with right-sided rib pain TECHNIQUE: 5 views FINDINGS: Low lung volumes and cardiovascular markings. Heart mildly enlarged. Asymmetric elevation of right he midiaphragm redemonstrated. Strandy atelectasis right base. No sizable effusion. There is a segmental fracture of the right posterior and posterolateral rib. Some periosteal callous formation is demonstrated compatible with a subacute injury. The more lateral fracture site is mildly displaced. Additional nondisplaced or minimally displaced fractures of the lateral ninth and 10th ribs with mild callus. Widening of the seventh intercostal space is a chronic finding, present back to 08/19/2018. IMPRESSION: 1. Hypoventilatory changes and mild cardiomegaly. 2. Segmental fracture of the right eighth rib. Mildly displaced. 3. Additional nondisplaced to minimally displaced fractures of the right lateral ninth and 10th ribs. 4. These fractures show periosteal callus formation compatible with subacute, healing fractures.
[2019-01-15] MEDS ORDERED: RX INFO: IV CONTRAST WAS GIVEN 1 EACH MISC MISCELLANE PRN (13:24)
[2019-01-15] MEDS ORDERED: HYDROmorphone 1 MG/ML 1 ML SYRINGE IVP STA ×2 (13:25→15:21)
--- NOTE | 2019-01-15 14:34 | CT ---
EXAMINATION TYPE: CT chest w con DATE OF EXAM: 01/15/2019 COMPARISON: 08/19/2018 HISTORY: 63-year-old male Right sided rib pain, posterior side TECHNIQUE: Contiguous axial scanning of the chest after the administration of 80 mL of Isovue 300. C oronal/sagittal reconstructions performed. CT DLP: 1430.5mGycm. Automatic exposure control utilized for a dose reduction. FINDINGS: Heart upper limits of normal in size without pericardial effusion. Prominent cardiophrenic fat pad is present. Coronary vessel calcifications are also present. Aorta normal caliber with conventional arch vessel branching anatomy. No thoracic lymphadenopathy by CT size criteria. Mild bilateral gynecomastia is noted. Redemonstrated focal lung herniation along the right posterolateral seventh intercostal space. The am ount of herniated lung has increased in size now measuring 4.6 x 2.3 cm versus 4.2 x 1.0 cm, previous ly. This secondary results in splaying of the seventh and 8 ribs. No consolidation, pneumothorax, or pleural effusion is seen. Some scattered strandy areas of atelectasis or scarring are demonstrated. Gallbladder is hydropic measuring 4.6 cm wide. Layering calculi are demonstrated. Small anterior and inferior splenules. Atretic left kidney. Bones: Segmental fracture of the right posterior and lateral eighth rib. Some periosteal callus is pr esent especially laterally. Additional nondisplaced fracture of the posterolateral ninth rib with per iosteal callus.. Facet arthropathy throughout with anterior endplate spondylosis. IMPRESSION: 1. Segmental fracture of the right eighth rib with some periosteal callus laterally suggesting subacu te fracture here. The posterior component to the segmental fracture does not have callus and may be a n acute component. 2. Additional subacute healing fracture of the right posterolateral ninth rib. 3. Splaying of the seventh intercostal space secondary to focal lung herniation measuring 4.6 x 2.3 c m, increased in size from 4.2 x 1.0 cm on 08/19/2018. Consider referral to thoracic surgery to assess for any potential management for this finding. 4. Hydropic gallbladder with cholelithiasis. Hydropic change may be due to fasting state. If right up per quadrant pain or concern for early acute cholecystitis, follow-up ultrasound or HIDA scan.
[2019-01-15 14:43] VITALS: BP 123/57; PULSE 67
[2019-01-15] MEDS ORDERED: ACET/COD 300 MG/30 MG STARTER PACK 6 TAB BTL PO STA (15:24)
== END 2019-01-15 15:35 | disposition home or self-care (01) ==
LOC: EC 10:25
DX: S22.41XG Multiple fractures of ribs, right side, subsequent encounter for fracture with delayed healing (principal); J98.4 Other disorders of lung; E78.5 Hyperlipidemia, unspecified; E11.40 Type 2 diabetes mellitus with diabetic neuropathy, unspecified; G47.33 Obstructive sleep apnea (adult) (pediatric); E11.22 Type 2 diabetes mellitus with diabetic chronic kidney disease; I12.9 Hypertensive chronic kidney disease with stage 1 through stage 4 chronic kidney disease, or unspecified chronic kidney disease; N18.9 Chronic kidney disease, unspecified; M10.9 Gout, unspecified; Z98.890 Other specified postprocedural states; F32.9 Major depressive disorder, single episode, unspecified; Z99.89 Dependence on other enabling machines and devices; Z79.84 Long term (current) use of oral hypoglycemic drugs; Z79.899 Other long term (current) drug therapy
CPT/HCPCS: 36415; 93005; 80053; 82150; 83690; 85025; 85610; 85730; 81001; 87086; 71101; 71260; 99285; 96374; 96375 ×2; 96376; 96361; J2270; J1170; C9113; Q9967

== ENCOUNTER → 2019-09-21 | Outpatient (CLI) | payer OTHER ==
--- NOTE | 2019-09-21 10:48 | MR ---
EXAMINATION TYPE: MR knee LT wo con DATE OF EXAM: 09/21/2019 COMPARISON: None HISTORY: Pain in left knee TECHNIQUE: Multiplanar, multisequence imaging of the left knee is performed without IV contrast. FINDINGS: Exam is severely limited due to motion artifact. MEDIAL MENISCUS: There is complex signal the posterior horn of the medial meniscus compatible with me niscal tear. Due to artifact and motion is difficult to exclude a anterior horn meniscal tear. There is extrusion of the posterior horn. 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 CRUCIATE LIGAMENTS: The anterior and posterior cruciate ligaments are intact and unremarkable. COLLATERAL LIGAMENTS: The medial collateral ligament and lateral collateral ligament complex are inta ct. A small amount of fluid surrounding the medial collateral imaging compatible with a strain. No te ar identified.. EXTENSOR MECHANISM: Visualized quadriceps and patellar tendons are intact. EFFUSION: No significant suprapatellar joint effusion. POPLITEAL CYST: There is a 1.8 x 2.6 x 5.4 cm popliteal fossa cyst. TRICOMPARTMENT SPACES: Hypertrophic change and loss of joint space is noted particularly noted involv ing the medial compartment with loss of articular cartilage. There is thinning of the patellar cartil age compatible with grade II chondromalacia. Small amount of fluids patellar bursa is noted. There is a medial plica. BONE MARROW SIGNAL: Area of marrow edema involving the articular portion of the medial tibia is likel y reactive and post arthritic. IMPRESSION: 1. Changes of osteoarthritis with complex tear posterior horn medial meniscus with extrusion of the m eniscus. Due to motion and artifact assessment of the anterior horn is limited however, tear involvin g the anterior horn is also suspected 2. MCL strain with no evidence of tear. 3. Small popliteal fossa cyst measuring 1.8 x 2.6 x 5.4 cm. For findings involving the posterior horn the lateral meniscus are most typical of myxoid degeneration rather than subtle tear correlate clini nanci.
== END | disposition home or self-care (01) ==
LOC: RADMRIMAIN 08:42
PROVIDERS: ATTEND Nurse Practitioner Family
DX: S83.242A Other tear of medial meniscus, current injury, left knee, initial encounter (principal); M17.12 Unilateral primary osteoarthritis, left knee

== ENCOUNTER 2019-09-26 13:04 | Emergency (ER) | payer OTHER ==
[2019-09-26 13:16] VITALS: RESP 16
[2019-09-26] MEDS ORDERED: ONDANSETRON 4 MG/2 ML VIAL IVP STA (13:45)
[2019-09-26] MEDS ORDERED: KETOROLAC 30 MG/ML 1 ML VIAL IVP STA (13:45)
[2019-09-26] MEDS ORDERED: HYDROmorphone 1 MG/ML 1 ML SYRINGE IVP STA ×2 (13:45→14:41)
--- NOTE | 2019-09-26 14:09 | ED ---
Abdominal Pain HPI - General Source: patient, EMS, RN notes reviewed Mode of arrival: EMS Limitations: no limitations <Raghav Black - Last Filed: 09/26/19 15:31> <Heike Harley - Last Filed: 09/28/19 00:25> - General Chief Complaint: Abdominal Pain Stated Complaint: Abd pain Time Seen by Provider: 09/26/19 13:29 - History of Present Illness Initial Comments: 64-year-old male presents emergency Department chief complaint of right-sided rib pain. Patient states that last year he had an injury in which she had multiple rib fractures, AND was found to have diaphragmatic hernia at seventh and eighth rib. Patient was evaluated by Dr. Gordon who advised him that he should lose weight prior to any surgery. Patient states pain is actually improving until a day he felt a pop and she's had increase in pain. Patient states they've pain is unbearable and he felt that he cannot tolerate discomfort anymore. (Raghav Black) - Related Data Home Medications Medication Instructions Recorded Confirmed Atorvastatin [Lipitor] 20 mg PO W/SUPPER 07/15/14 12/01/18 metFORMIN HCL [Glucophage] 500 mg PO W/SUPPER 07/15/14 12/01/18 Allopurinol [Zyloprim] 200 mg PO W/SUPPER 03/05/16 12/01/18 Citalopram Hydrobromide [CeleXA] 20 mg PO W/SUPPER 08/19/18 12/01/18 Diltiazem Cd [Cardizem CD] 300 mg PO W/SUPPER 08/19/18 12/01/18 Magnesium Oxide [Mag-Ox] 800 mg PO W/SUPPER 08/19/18 12/01/18 Previous Rx's Medication Instructions Recorded Cephalexin [Keflex] 500 mg PO Q6HR 7 Days #28 cap 12/01/18 Sulfamethox-Tmp 800-160Mg [Bactrim 1 tab PO Q12HR #20 tab 12/19/18 DS 800-160 mg] Cyclobenzaprine [Flexeril] 10 mg PO TID #20 tab 01/15/19 HYDROcodone/APAP 10-325MG [[place] 1 tab PO Q6H PRN #10 tab 01/15/19 10-325] HYDROcodone/APAP 10-325MG [[place] 1 tab PO Q6H PRN #12 tab 09/26/19 [id number]] Allergies Allergy/AdvReac Type Severity Reaction Status Date / Time No Known Allergies Allergy Verified 01/15/19 10:38 Review of Systems ROS Other: All systems not noted in ROS Statement are negative. <SofiaRaghav Mcdermott - Last Filed: 09/26/19 15:31> ROS Other: All systems not noted in ROS Statement are negative. <Heike Harley - Last Filed: 09/28/19 00:25> ROS Statement: Those systems with pertinent positive or pertinent negative responses have been documented in the HPI. 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 Past Anesthesia/Blood Transfusion Reactions: No Reported Reaction Past Psychological History: Depression Smoking Status: Never smoker Past Alcohol Use History: Rare Past Drug Use History: None Reported - Past Family History Father Family Medical History: Coronary Artery Disease (CAD) Additional Family Medical History / Comment(s): Father while on the list for a heart donation. He had CABG twice. Mother Family Medical History: Coronary Artery Disease (CAD), Hypertension, Renal Disease Additional Family Medical History / Comment(s): Mother had CABG. She lived to be 97yrs old. <SofiaRaghav Mcdermott - Last Filed: 09/26/19 15:31> General Exam Limitations: no limitations General appearance: alert, in no apparent distress Head exam: Present: atraumatic, normocephalic, normal inspection Eye exam: Present: normal appearance, PERRL, EOMI. Absent: scleral icterus, conjunctival injection, periorbital swelling ENT exam: Present: normal exam, normal oropharynx, mucous membranes moist, TM's normal bilaterally Neck exam: Present: normal inspection, full ROM. Absent: tenderness, meningismus, lymphadenopathy Respiratory exam: Present: normal lung sounds bilaterally, chest wall tenderness. Absent: respiratory distress, wheezes, rales, rhonchi, stridor Cardiovascular Exam: Present: regular rate, normal rhythm, normal heart sounds. Absent: systolic murmur, diastolic murmur, rubs, gallop, clicks GI/Abdominal exam: Present: soft, normal bowel sounds. Absent: distended, t enderness, guarding, rebound, rigid <Raghav Black - Last Filed: 09/26/19 15:31> Course Vital Signs 09/26/19 09/26/19 13:07 16:03 Temperature 97.4 F L 97.5 F L Pulse Rate 60 72 Respiratory 16 16 Rate Blood Pressure 155/77 126/76 O2 Sat by Pulse 98 97 Oximetry Medical Decision Making - Lab Data Result diagrams: 09/26/19 14:03 09/26/19 14:03 <Raghav Black - Last Filed: 09/26/19 15:31> - Lab Data Result diagrams: 09/26/19 14:03 09/26/19 14:03 <Heike Harley - Last Filed: 09/28/19 00:25> - Medical Decision Making 64-year-old male presented for rib pain on the right side. This is related to a diaphragmatic hernia. Patient has been diagnosed by Dr. Gordon cardiothoracic. Patient has aggravation of symptoms secondary to twisting this. Patient does not have any evidence of bulging at this time. Patient will be discharged with pain medication and will follow-up with pain management. (Raghav Black) I was available for consultation in the emergency department. The history and physical exam were done by the midlevel provider. I was consulted for this patients care. I reviewed the case with the midlevel provider and based on their presentation of the patient, I agree with the assessment, medical decision making and plan of care as documented. Chart was dictated using [employer] dictation software. Attempts were made to correct any dictation errors however some typographical errors may persist. (Heike Harley) - Lab Data Lab Results 09/26/19 09/26/19 09/26/19 Range/Units 14:03 14:03 14:12 WBC 14.0 H (3.8-10.6) k/uL RBC 4.07 L (4.30-5.90) m/uL Hgb 12.4 L (13.0-17.5) gm/dL Hct 38.9 L (39.0-53.0) % MCV 95.6 (80.0-100.0) fL MCH 30.5 (25.0-35.0) pg MCHC 31.8 (31.0-37.0) g/dL RDW 13.6 (11.5-15.5) % Plt Count 416 (150-450) k/uL Neutrophils % 73 % Lymphocytes % 20 % Monocytes % 5 % Eosinophils % 1 % Basophils % 0 % Neutrophils # 10.2 H (1.3-7.7) k/uL Lymphocytes # 2.7 (1.0-4.8) k/uL Monocytes # 0.8 (0-1.0) k/uL Eosinophils # 0.1 (0-0.7) k/uL Basophils # 0.0 (0-0.2) k/uL Sodium 133 L (137-145) mmol/L Potassium 5.5 H (3.5-5.1) mmol/L Chloride 103 (98-107) mmol/L Carbon Dioxide 22 (22-30) mmol/L Anion Gap 8 mmol/L BUN 44 H (9-20) mg/dL Creatinine 1.26 H (0.66-1.25) mg/dL Est GFR (CKD-EPI)AfAm 69 (>60 ml/min/1.73 sqM) Est GFR (CKD-EPI)NonAf 59 (>60 ml/min/1.73 sqM) Glucose 192 H (74-99) mg/dL Calcium 9.6 (8.4-10.2) mg/dL Total Bilirubin 0.2 (0.2-1.3) mg/dL AST 17 (17-59) U/L ALT 25 (4-49) U/L Alkaline Phosphatase 83 (38-126) U/L Total Protein 7.1 (6.3-8.2) g/dL Albumin 3.8 (3.5-5.0) g/dL Amylase 77 (30-110) U/L Lipase 119 (23-300) U/L Urine Color Light Yellow Urine Appearance Clear (Clear) Urine pH 5.5 (5.0-8.0) Ur Specific [place] 1.017 (1.001-1.035) Urine Protein 1+ H (Negative) Urine Glucose (UA) Negative (Negative) Urine Ketones Negative (Negative) Urine Blood Negative (Negative) Urine Nitrite Negative (Negative) Urine Bilirubin Negative (Negative) Urine Urobilinogen <2.0 (<2.0) mg/dL Ur Leukocyte Esterase Negative (Negative) Urine RBC 1 (0-5) /hpf Urine WBC 1 (0-5) /hpf Ur Squamous Epith Cells <1 (0-4) /hpf Urine Mucus Rare H (None) /hpf Disposition Is patient prescribed a controlled substance at d/c from ED?: No Time of Disposition: 15:33 <Raghav Black - Last Filed: 09/26/19 15:31> <Heike Harley - Last Filed: 09/28/19 00:25> Clinical Impression: Hernia, diaphragmatic, Rib pain on right side Disposition: HOME SELF-CARE Condition: Stable Instructions (If sedation given, give patient instructions): Chest Pain (ED) Additional Instructions: Please return to the Emergency Department if symptoms worsen or any other concerns. Prescriptions: HYDROcodone/APAP 10-325MG [[place] 10-325] 1 tab PO Q6H PRN #12 tab PRN Reason: pain Referrals: Jose Green MD [Primary Care Provider] - 1-2 days Nellie Osborn MD [STAFF PHYSICIAN] - 1-2 days Alejandro Felder MD [STAFF PHYSICIAN] - 1-2 days Aneudy Rossi MD [STAFF PHYSICIAN] - 1-2 days Gretel Subramanian MD [Medical Doctor] - 1-2 days
[2019-09-26 14:17] LABS: Basophils % (A) 0 %; Eosinophils # (A) 0.1 k/uL (0-0.7); Eosinophils % (A) 1 %; HCT 38.9 % (39.0-53.0); HGB 12.4 gm/dL (13.0-17.5); Lymphocytes # (A) 2.7 k/uL (1.0-4.8); Lymphocytes % (A) 20 %; MCH 30.5 pg (25.0-35.0); MCHC 31.8 g/dL (31.0-37.0); MCV 95.6 fL (80.0-100.0); Mean Platelet Volume 7.4; Monocytes # (A) 0.8 k/uL (0-1.0); Monocytes % (A) 5 %; Neutrophils # (A) 10.2 k/uL (1.3-7.7); Neutrophils % (A) 73 %; Platelet Count 416 k/uL (150-450); RBC 4.07 m/uL (4.30-5.90); RDW 13.6 % (11.5-15.5)
[2019-09-26 14:24] LABS: Appearance,Urine Clear (Clear); Bilirubin,Urine Negative (Negative); Blood,Urine Negative (Negative); Color,Urine Light Yellow; Glucose,Urine (UA) Negative (Negative); Ketones,Urine Negative (Negative); Leukocyte Esterase,Urine Negative (Negative); Mucus,Urine Rare /hpf; Nitrite,Urine Negative (Negative); PH, Urine 5.5 (5.0-8.0); Protein,Urine 1+ (Negative); RBC,Urine 1 /hpf (0-5); Specific Gravity,Urine 1.017 (1.001-1.035); Squamous Epithelial Cell,Urine <1 /hpf (0-4); Urobilinogen,Urine <2.0 mg/dL (<2.0); WBC,Urine 1 /hpf (0-5)
[2019-09-26 14:29] LABS: Albumin 3.8 g/dL (3.5-5.0); Calcium 9.6 mg/dL (8.4-10.2); Potassium 5.5 mmol/L (3.5-5.1); Total Bilirubin 0.2 mg/dL (0.2-1.3); Total Protein 7.1 g/dL (6.3-8.2)
--- NOTE | 2019-09-26 14:54 | XR ---
EXAMINATION TYPE: XR chest 1V DATE OF EXAM: 09/26/2019 COMPARISON: 01/15/2019 HISTORY: Chest pain TECHNIQUE: FINDINGS: There is elevated right diaphragm. Left lung is clear. There is no heart failure. Heart pineda ears slightly enlarged. There are no hilar masses. There is right lower rib deformity related to old fracture. IMPRESSION: There is chronic atelectasis and elevation of the right diaphragm at the right lung base similar to last exam. No significant change. No heart failure.
--- NOTE | 2019-09-26 14:56 | XR ---
EXAMINATION TYPE: XR KUB DATE OF EXAM: 09/26/2019 COMPARISON: NONE HISTORY: Right lower quadrant pain TECHNIQUE: 3 views upright FINDINGS: There is no sign of intestinal obstruction or pneumoperitoneum. Fecal pattern is normal. Th ere are no pathologic calcifications over the kidneys. There is no evidence of a mass. There is mild blunting right costophrenic angle. There are old fractures of the right ninth and eighth ribs. IMPRESSION: Pleural reaction right lung base. Old right lower rib fractures. Nonacute abdomen.
[2019-09-26 16:04] VITALS: BP 126/76; PULSE 72; TEMP 97.5
== END 2019-09-26 16:03 | disposition home or self-care (01) ==
LOC: EC 13:04
DX: K44.9 Diaphragmatic hernia without obstruction or gangrene (principal); N18.9 Chronic kidney disease, unspecified; E11.22 Type 2 diabetes mellitus with diabetic chronic kidney disease; E11.42 Type 2 diabetes mellitus with diabetic polyneuropathy; E78.5 Hyperlipidemia, unspecified; I12.9 Hypertensive chronic kidney disease with stage 1 through stage 4 chronic kidney disease, or unspecified chronic kidney disease; M10.9 Gout, unspecified; F32.9 Major depressive disorder, single episode, unspecified; G47.33 Obstructive sleep apnea (adult) (pediatric); Z79.84 Long term (current) use of oral hypoglycemic drugs; Z79.899 Other long term (current) drug therapy; Z87.81 Personal history of (healed) traumatic fracture; Z99.89 Dependence on other enabling machines and devices
CPT/HCPCS: 36415; 80053; 82150; 83690; 85025; 81001; 71045; 74018; 99284; 96374; 96375 ×2; 96376; J2405; J1885; J1170

== ENCOUNTER → 2021-08-30 | Outpatient (CLI) | payer MEDICARE, OTHER ==
--- NOTE | 2021-08-30 14:25 | CT ---
EXAMINATION TYPE: CT sinus wo con DATE OF EXAM: 08/30/2021 COMPARISON: None HISTORY: 65-year-old male J32.9, Chronic sinusitis CT DLP: 603.0 mGycm Automated exposure control for dose reduction was used. TECHNIQUE: Noncontrast axial views of the paranasal sinuses were obtained. Coronal reconstructions pe rformed. FINDINGS: PARANASAL SINUSES: Lobulated mucosal thickening floors of the maxillary sinuses. Additional 1.0 cm polyp or mucosal rete ntion cyst lateral aspect of the left maxillary sinus. Trace mucosal thickening of the frontal sinuses and ethmoid air cells. 1.1 cm polyp or mucous retention cyst left sphenoid sinus. There is no air-fluid level. Reactive shira- osteogenesis is not seen. There is no destruction of the osseous varela of the paranasal sinuses. THE NASAL CAVITY: The osteomeatal complexes are patent. Prominent rightward nasal septal deviation. The imaged brain and orbits are normal in appearance. Visualized mastoid air cells and middle ear cavities are well pneumatized. Reformatted images confirm above findings. IMPRESSION: 1. Prominent right nasal septal deviation. 2. Mild chronic paranasal sinus disease as above.
== END | disposition home or self-care (01) ==
LOC: RADCTMAIN 13:36
PROVIDERS: ATTEND Otolaryngology
DX: J34.1 Cyst and mucocele of nose and nasal sinus (principal); J34.89 Other specified disorders of nose and nasal sinuses; J34.2 Deviated nasal septum
CPT/HCPCS: 70486

== ENCOUNTER 2023-09-20 12:16 | Emergency (ER) | payer MEDICARE, OTHER ==
--- NOTE | 2023-09-20 12:29 | ED ---
Dizziness HPI - General Source: patient, RN notes reviewed <Ella Clemons - Last Filed: 09/20/23 12:29> <Kamari Morris - Last Filed: 09/20/23 20:53> - General Stated Complaint: Dehydration Time Seen by Provider: 09/20/23 12:29 - History of Present Illness Initial Comments: Patient is a 68-year-old male presented to ER with a chief complaint of dizziness. Patient states for the past 4 days he has not been feeling right. He states that he was at the store earlier today and felt he was going to pass out. Denies any shortness of breath or chest pain. (Ella Clemons) 68-year-old male presenting with weakness, not feeling well, lower abdominal pain. Patient reports normal bowel movements. No vomiting. He does describes intermittent crampy abdominal pain. He denies fever. Denies chest pain. Denies focal numbness or weakness. (Kamari Morris) - Related Data Home Medications Medication Instructions Recorded Confirmed Atorvastatin [Lipitor] 20 mg PO W/SUPPER 07/15/14 12/01/18 metFORMIN HCL [Glucophage] 500 mg PO W/SUPPER 07/15/14 12/01/18 allopurinoL [Zyloprim] 200 mg PO W/SUPPER 03/05/16 12/01/18 Citalopram Hydrobromide [CeleXA] 20 mg PO W/SUPPER 08/19/18 12/01/18 Diltiazem Cd [Cardizem CD] 300 mg PO W/SUPPER 08/19/18 12/01/18 Magnesium Oxide [Mag-Ox] 800 mg PO W/SUPPER 08/19/18 12/01/18 Previous Rx's Medication Instructions Recorded Cephalexin [Keflex] 500 mg PO Q6HR 7 Days #28 cap 12/01/18 Sulfamethox-Tmp 800-160Mg [Bactrim 1 tab PO Q12HR #20 tab 12/19/18 DS 800-160 mg] Cyclobenzaprine [Flexeril] 10 mg PO TID #20 tab 01/15/19 HYDROcodone/APAP 10-325MG [[place] 1 tab PO Q6H PRN #10 tab 01/15/19 10-325] HYDROcodone/APAP 10-325MG [[place] 1 tab PO Q6H PRN #12 tab 09/26/19 [id number]] Allergies Allergy/AdvReac Type Severity Reaction Status Date / Time No Known Allergies Allergy Verified 09/20/23 13:00 Review of Systems ROS Other: All systems not noted in ROS Statement are negative. <Ella Clemons - Last Filed: 09/20/23 12:29> ROS Other: All systems not noted in ROS Statement are negative. <NadermarkusKamari Coelho - Last Filed: 09/20/23 20:53> ROS Statement: Those systems with pertinent positive or pertinent negative responses have been documented in the HPI. 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 Past Anesthesia/Blood Transfusion Reactions: No Reported Reaction Past Psychological History: Depression Past Alcohol Use History: Rare Past Drug Use History: None Reported - Past Family History Father Family Medical History: Coronary Artery Disease (CAD) Additional Family Medical History / Comment(s): Father while on the list for a heart donation. He had CABG twice. Mother Family Medical History: Coronary Artery Disease (CAD), Hypertension, Renal Disease Additional Family Medical History / Comment(s): Mother had CABG. She lived to be 97yrs old. <Ella Clemons - Last Filed: 09/20/23 12:29> General Exam <Ella Clemons - Last Filed: 09/20/23 12:29> General appearance: alert, in no apparent distress Head exam: Present: atraumatic, normocephalic Eye exam: Present: normal appearance, PERRL ENT exam: Present: mucous membranes dry Neck exam: Present: normal inspection. Absent: tenderness, meningismus Respiratory exam: Present: normal lung sounds bilaterally. Absent: respiratory distress, wheezes Cardiovascular Exam: Present: regular rate, normal rhythm GI/Abdominal exam: Present: soft, distended, tenderness. Absent: guarding Extremities exam: Present: normal inspection, normal capillary refill Neurological exam: Present: alert, oriented X3, CN II-XII intact. Absent: motor sensory deficit Psychiatric exam: Present: normal affect, normal mood Skin exam: Present: warm, dry, intact. Absent: cyanosis, diaphoretic <Kamari Morris - Last Filed: 09/20/23 20:53> - General Exam Comments Initial Comments: Visual Physical Exam Vital signs reviewed General: Well-appearing, nontoxic, no acute distress. Head: Normocephalic, atraumatic Eyes: PERRLA, EOMI ENT: Airway patent Chest: Nonlabored breathing Skin: No visual rash, normal skin tone Neuro: Alert and oriented 3 Musculoskeletal: No gross abnormalities (Ella Clemons) Course Vital Signs 09/20/23 09/20/23 09/20/23 12:58 18:00 18:49 Temperature 98.6 F 97.7 F Pulse Rate 104 H 90 80 Respiratory 20 18 Rate Blood Pressure 162/96 131/81 O2 Sat by Pulse 96 98 98 Oximetry Medical Decision Making <Ella Clemons - Last Filed: 09/20/23 12:29> - Lab Data Result diagrams: 09/20/23 13:23 09/20/23 13:23 <Kamari Morris - Last Filed: 09/20/23 20:53> - Medical Decision Making I performed the quick note portion of this chart. Electronically signed by Ella Clemons PA-C (Ella Clemons) Was pt. sent in by a medical professional or institution ([facility], [facility], urgent care, hospital, or fci...) When possible be specific @ -No Did you speak to anyone other than the patient for history (EMS, parent, family, police, friend...)? What history was obtained from this source @ -No Did you review nursing and triage notes (agree or disagree)? Why? @ -I reviewed and agree with nursing and triage notes Were old charts reviewed (outside hosp., previous admission, EMS record, old EKG, old radiological studies, urgent care reports/EKG's, fci records)? Report findings @ -No old charts were reviewed Differential Diagnosis (chest pain, altered mental status, abdominal pain women, abdominal pain men, vaginal bleeding, weakness, fever, dyspnea, syncope, headache, dizziness, GI bleed, back pain, seizure, CVA, palpatations, mental health, musculoskeletal)? @ -Not applicable EKG sinus rhythm, low voltage, rate of 99, NM interval 208, QRS duration 94, QTc [address] segment elevation. X-rays interpreted by me (1pt min.). @ -Chest x-ray negative for acute cardiopulmonary findings. CT interpreted by me (1pt min.). @ -[CT showing distended urinary bladder with bladder diverticuli, no other ac tony process identified. U/S interpreted by me (1pt. min.). @ -None done What testing was considered but not performed or refused? (CT, X-rays, U/S, labs)? Why? @ -None What meds were considered but not given or refused? Why? @ -None Did you discuss the management of the patient with other professionals (professionals i.e. , PA, [facility], lab, RT, psych nurse, neonatal social worker, penciller, teacher, quarantine officer, case checker)? Give summary @ -No Was smoking cessation discussed for >3mins.? @ -No Was critical care preformed (if so, how long)? @ -No Were there social determinants of health that impacted care today? How? (Homelessness, low income, unemployed, alcoholism, drug addiction, transporta tion, low edu. Level, literacy, decrease access to med. care, long-term, rehab)? @ -No Was there de-escalation of care discussed even if they declined (Discuss DNR or withdrawal of care, Hospice)? DNR status @ -No What co-morbidities impacted this encounter? (DM, HTN, Smoking, COPD, CAD, Cancer, CVA, ARF, Chemo, Hep., AIDS, mental health diagnosis, sleep apnea, morbid obesity)? @ -[Obesity, hypertension Was patient admitted / discharged? Hospital course, mention meds given and route, prescriptions, significant lab abnormalities, going to OR and other pertinent info. @ -68-year-old male who had presented with mild cough, fatigue. Patient is negative for influenza, negative for coronavirus. Chest x-ray is clear. He did have some lower abdominal cramping pain. CT was performed which showed distended bladder with diverticuli patient was able to void after CT. He has a mild leukocytosis, mild elevation in creatinine. Overall laboratory testing is unremarkable. Patient's vital signs are stable. He does have hematuria without bacteria on urinalysis. I do think he will benefit from outpatient urology evaluation. The patient should return to the emergency department with worsening or changing symptoms. Undiagnosed new problem with uncertain prognosis? @ -No Drug Therapy requiring intensive monitoring for toxicity (Heparin, Nitro, Insulin, Cardizem)? @ -No Were any procedures done? @ -No Diagnosis/symptom? @ -[Weakness, cough Acute, or Chronic, or Acute on Chronic? @ -Acute Uncomplicated (without systemic symptoms) or Complicated (systemic symptoms)? @ -[default Side effects of treatment? @ -No Exacerbation, Progression, or Severe Exacerbation? @ -No Poses a threat to life or bodily function? How? (Chest pain, USA, NV, pneumonia, PE, COPD, DKA, ARF, appy, cholecystitis, CVA, Diverticulitis, Homicidal, Suicidal, threat to staff... and all critical care pts) @ -Low risk at this time (Kamari Morris) - Lab Data Lab Results 09/20/23 09/20/23 09/20/23 Range/Units 13:23 13:23 13:23 WBC 13.4 H (3.8-10.6) k/uL RBC 4.97 (4.30-5.90) m/uL Hgb 15.2 (13.0-17.5) gm/dL Hct 47.3 (39.0-53.0) % MCV 95.2 (80.0-100.0) fL MCH 30.6 (25.0-35.0) pg MCHC 32.2 (31.0-37.0) g/dL RDW 13.2 (11.5-15.5) % Plt Count 333 (150-450) k/uL MPV 7.8 Neutrophils % 77 % Lymphocytes % 16 % Monocytes % 4 % Eosinophils % 2 % Basophils % 0 % Neutrophils # 10.3 H (1.3-7.7) k/uL Lymphocytes # 2.2 (1.0-4.8) k/uL Monocytes # 0.6 (0-1.0) k/uL Eosinophils # 0.2 (0-0.7) k/uL Basophils # 0.1 (0-0.2) k/uL PT 10.5 (10.0-12.5) sec INR 1.0 (<1.2) APTT 23.4 (22.0-30.0) sec Sodium 134 L (137-145) mmol/L Potassium 5.1 (3.5-5.1) mmol/L Chloride 107 (98-107) mmol/L Carbon Dioxide 15 L (22-30) mmol/L Anion Gap 12 mmol/L BUN 28 H (9-20) mg/dL Creatinine 1.72 H (0.66-1.25) mg/dL Est GFR (CKD-EPI)AfAm 46 (>60 ml/min/1.73 sqM) Est GFR (CKD-EPI)NonAf 40 (>60 ml/min/1.73 sqM) Glucose 160 H (74-99) mg/dL Plasma Lactic Acid Aroldo (0.7-2.0) mmol/L Calcium 10.2 (8.4-10.2) mg/dL Magnesium 1.8 (1.6-2.3) mg/dL Total Bilirubin 0.7 (0.2-1.3) mg/dL AST 32 (17-59) U/L ALT 21 (4-49) U/L Alkaline Phosphatase 78 (38-126) U/L Troponin I (0.000-0.034) ng/mL Total Protein 8.0 (6.3-8.2) g/dL Albumin 4.3 (3.5-5.0) g/dL Urine Color Urine Appearance (Clear) Urine pH (5.0-8.0) Ur Specific [place] (1.001-1.035) Urine Protein (Negative) Urine Glucose (UA) (Negative) Urine Ketones (Negative) Urine Blood (Negative) Urine Nitrite (Negative) Urine Bilirubin (Negative) Urine Urobilinogen (<2.0) mg/dL Ur Leukocyte Esterase (Negative) Urine RBC (0-5) /hpf Urine WBC (0-5) /hpf Urine Mucus (None) /hpf Influenza Type A (PCR) (Not Detectd) Influenza Type B (PCR) (Not Detectd) RSV (PCR) (Not Detectd) SARS-CoV-2 (PCR) (Not Detectd) 09/20/23 09/20/23 09/20/23 Range/Units 13:23 13:23 13:23 WBC (3.8-10.6) k/uL RBC (4.30-5.90) m/uL Hgb (13.0-17.5) gm/dL Hct (39.0-53.0) % MCV (80.0-100.0) fL MCH (25.0-35.0) pg MCHC (31.0-37.0) g/dL RDW (11.5-15.5) % Plt Count (150-450) k/uL MPV Neutrophils % % Lymphocytes % % Monocytes % % Eosinophils % % Basophils % % Neutrophils # (1.3-7.7) k/uL Lymphocytes # (1.0-4.8) k/uL Monocytes # (0-1.0) k/uL Eosinophils # (0-0.7) k/uL Basophils # (0-0.2) k/uL PT (10.0-12.5) sec INR (<1.2) APTT (22.0-30.0) sec Sodium (137-145) mmol/L Potassium (3.5-5.1) mmol/L Chloride (98-107) mmol/L Carbon Dioxide (22-30) mmol/L Anion Gap mmol/L BUN (9-20) mg/dL Creatinine (0.66-1.25) mg/dL Est GFR (CKD-EPI)AfAm (>60 ml/min/1.73 sqM) Est GFR (CKD-EPI)NonAf (>60 ml/min/1.73 sqM) Glucose (74-99) mg/dL Plasma Lactic Acid Aroldo 1.2 (0.7-2.0) mmol/L Calcium (8.4-10.2) mg/dL Magnesium (1.6-2.3) mg/dL Total Bilirubin (0.2-1.3) mg/dL AST (17-59) U/L ALT (4-49) U/L Alkaline Phosphatase (38-126) U/L Troponin I <0.012 (0.000-0.034) ng/mL Total Protein (6.3-8.2) g/dL Albumin (3.5-5.0) g/dL Urine Color Urine Appearance (Clear) Urine pH (5.0-8.0) Ur Specific [place] (1.001-1.035) Urine Protein (Negative) Urine Glucose (UA) (Negative) Urine Ketones (Negative) Urine Blood (Negative) Urine Nitrite (Negative) Urine Bilirubin (Negative) Urine Urobilinogen (<2.0) mg/dL Ur Leukocyte Esterase (Negative) Urine RBC (0-5) /hpf Urine WBC (0-5) /hpf Urine Mucus (None) /hpf Influenza Type A (PCR) Not Detected (Not Detectd) Influenza Type B (PCR) Not Detected (Not Detectd) RSV (PCR) Not Detected (Not Detectd) SARS-CoV-2 (PCR) Not Detected (Not Detectd) 09/20/23 Range/Units 19:17 WBC (3.8-10.6) k/uL RBC (4.30-5.90) m/uL Hgb (13.0-17.5) gm/dL Hct (39.0-53.0) % MCV (80.0-100.0) fL MCH (25.0-35.0) pg MCHC (31.0-37.0) g/dL RDW (11.5-15.5) % Plt Count (150-450) k/uL MPV Neutrophils % % Lymphocytes % % Monocytes % % Eosinophils % % Basophils % % Neutrophils # (1.3-7.7) k/uL Lymphocytes # (1.0-4.8) k/uL Monocytes # (0-1.0) k/uL Eosinophils # (0-0.7) k/uL Basophils # (0-0.2) k/uL PT (10.0-12.5) sec INR (<1.2) APTT (22.0-30.0) sec Sodium (137-145) mmol/L Potassium (3.5-5.1) mmol/L Chloride (98-107) mmol/L Carbon Dioxide (22-30) mmol/L Anion Gap mmol/L BUN (9-20) mg/dL Creatinine (0.66-1.25) mg/dL Est GFR (CKD-EPI)AfAm (>60 ml/min/1.73 sqM) Est GFR (CKD-EPI)NonAf (>60 ml/min/1.73 sqM) Glucose (74-99) mg/dL Plasma Lactic Acid Aroldo (0.7-2.0) mmol/L Calcium (8.4-10.2) mg/dL Magnesium (1.6-2.3) mg/dL Total Bilirubin (0.2-1.3) mg/dL AST (17-59) U/L ALT (4-49) U/L Alkaline Phosphatase (38-126) U/L Troponin I (0.000-0.034) ng/mL Total Protein (6.3-8.2) g/dL Albumin (3.5-5.0) g/dL Urine Color Colorless Urine Appearance Clear (Clear) Urine pH 5.5 (5.0-8.0) Ur Specific [place] 1.016 (1.001-1.035) Urine Protein 2+ H (Negative) Urine Glucose (UA) 2+ H (Negative) Urine Ketones Negative (Negative) Urine Blood Moderate H (Negative) Urine Nitrite Negative (Negative) Urine Bilirubin Negative (Negative) Urine Urobilinogen <2.0 (<2.0) mg/dL Ur Leukocyte Esterase Negative (Negative) Urine RBC 114 H (0-5) /hpf Urine WBC 3 (0-5) /hpf Urine Mucus Rare H (None) /hpf Influenza Type A (PCR) (Not Detectd) Influenza Type B (PCR) (Not Detectd) RSV (PCR) (Not Detectd) SARS-CoV-2 (PCR) (Not Detectd) Disposition <Ella Clemons - Last Filed: 09/20/23 12:29> Is patient prescribed a controlled substance at d/c from ED?: No Time of Disposition: 20:53 <Kamari Morris - Last Filed: 09/20/23 20:53> Clinical Impression: Dehydration, Abdominal pain Disposition: HOME SELF-CARE Condition: Fair Instructions (If sedation given, give patient instructions): Abdominal Pain (ED) Referrals: Fanta Millan [facility] [REFERRING] - 1-2 days Pal Grey MD [STAFF PHYSICIAN] - 1-2 days
[2023-09-20 13:40] LABS: Basophils # (A) 0.1 k/uL (0-0.2); Basophils % (A) 0 %; Eosinophils # (A) 0.2 k/uL (0-0.7); Eosinophils % (A) 2 %; HCT 47.3 % (39.0-53.0); HGB 15.2 gm/dL (13.0-17.5); Lymphocytes # (A) 2.2 k/uL (1.0-4.8); Lymphocytes % (A) 16 %; MCH 30.6 pg (25.0-35.0); MCHC 32.2 g/dL (31.0-37.0); MCV 95.2 fL (80.0-100.0); Mean Platelet Volume 7.8; Monocytes # (A) 0.6 k/uL (0-1.0); Monocytes % (A) 4 %; Neutrophils # (A) 10.3 k/uL (1.3-7.7); Neutrophils % (A) 77 %; Platelet Count 333 k/uL (150-450); RBC 4.97 m/uL (4.30-5.90); RDW 13.2 % (11.5-15.5); WBC 13.4 k/uL (3.8-10.6)
[2023-09-20 13:45] LABS: ALT 21 U/L (4-49); African American GFR (CKD) 46 (>60 ml/min/1.73 sqM); Albumin 4.3 g/dL (3.5-5.0); Anion Gap 12 mmol/L; Blood Urea Nitrogen 28 mg/dL (9-20); Calcium 10.2 mg/dL (8.4-10.2); Carbon Dioxide 15 mmol/L (22-30); Chloride 107 mmol/L (98-107); Glucose 160 mg/dL (74-99); Non-African American GFR(CKD) 40 (>60 ml/min/1.73 sqM); Partial Thromboplastin Time 23.4 sec (22.0-30.0); Prothrombin Time 10.5 sec (10.0-12.5); Sodium 134 mmol/L (137-145); Total Bilirubin 0.7 mg/dL (0.2-1.3)
[2023-09-20 13:50] LABS: AST 32 U/L (17-59); Alkaline Phosphatase 78 U/L (38-126); Magnesium 1.8 mg/dL (1.6-2.3); Potassium 5.1 mmol/L (3.5-5.1)
--- NOTE | 2023-09-20 16:28 | XR ---
EXAMINATION TYPE: XR chest 2V DATE OF EXAM: 09/20/2023 COMPARISON: 09/26/2019 HISTORY: 68-year-old male weakness TECHNIQUE: PA and lateral views FINDINGS: Eventration anterior right hemidiaphragm. Colonic interposition below the right hemidiaphragm. Some s trandy density at the right base suggestive of atelectasis. The heart appears mildly enlarged. Overal l low lung volumes. Mild interstitial prominence of the chronic appearance. No darius consolidation or pleural effusion otherwise seen. IMPRESSION: Hypoventilatory changes. Mild cardiomegaly. No acute process seen.
[2023-09-20] MEDS: SODIUM CHLORIDE 0.9% 1,000 ML IV ONE (18:47)
[2023-09-20 19:15] VITALS: TEMP 97.7
--- NOTE | 2023-09-20 19:28 | CT ---
EXAMINATION TYPE: CT abdomen pelvis wo con CT DLP: 3.2 mGycm, Automated exposure control for dose reduction was used. DATE OF EXAM: 09/20/2023 6:22 PM COMPARISON: 06/21/2015. CLINICAL INDICATION:Male, 68 years old with history of lower ab pain; Lower abdominal pain TECHNIQUE: Axial CT abdomen pelvis wo con;Sagittal and coronal reformats were created on a separate workstation. Contrast used: (none if empty) Oral contrast used: without Oral Contrast (none if empty) FINDINGS: LOWER CHEST: Heart is mildly enlarged for size. Elevated right diaphragm. Streaky atelectasis in the lung bases. Remote appearing right-sided rib fractures. ABDOMEN LIVER: Unremarkable GALLBLADDER AND BILE DUCTS: Layering increased densities within the lumen consistent with gallstones are present. PANCREAS: Unremarkable. SPLEEN: Unremarkable. ADRENAL GLANDS: Unremarkable. KIDNEYS AND URETERS: No evidence of hydronephrosis or renal calculus. The ureters are unremarkable. PELVIS BLADDER: Distended urinary bladder with multiple bladder diverticula. REPRODUCTIVE: Unremarkable. ABDOMEN & PELVIS STOMACH AND BOWEL: No evidence of bowel obstruction. Scattered colonic diverticulosis. Second portion duodenal diverticula. PERITONEUM/RETROPERITONEUM: No evidence of pneumoperitoneum or free fluid. VASCULATURE: No evidence of aortic aneurysm. MUSCULOSKELETAL: No acute osseous abnormalities. Severe disc degeneration changes are present through out the thoracolumbar spine. LYMPH NODES: No gross evidence for lymphadenopathy. SOFT TISSUE/ABDOMINAL WALL: Bilateral fat-containing inguinal hernias. IMPRESSION: 1. Distended urinary bladder with multiple bladder diverticula. Correlate for bladder outlet obstruc tion. Otherwise no acute process. 2. Cholelithiasis. 3. Clonic diverticulosis. 4. Fat-containing inguinal hernias bilaterally.
[2023-09-20 20:08] LABS: Appearance,Urine Clear (Clear); Bilirubin,Urine Negative (Negative); Blood,Urine Moderate (Negative); Color,Urine Colorless; Glucose,Urine (UA) 2+ (Negative); Ketones,Urine Negative (Negative); Leukocyte Esterase,Urine Negative (Negative); Mucus,Urine Rare /hpf; Nitrite,Urine Negative (Negative); PH, Urine 5.5 (5.0-8.0); Protein,Urine 2+ (Negative); RBC,Urine 114 /hpf (0-5); Specific Gravity,Urine 1.016 (1.001-1.035); Urobilinogen,Urine <2.0 mg/dL (<2.0); WBC,Urine 3 /hpf (0-5)
[2023-09-20] MEDS ORDERED: ACETAMINOPHEN TAB 500 MG TAB PO STA (21:42)
[2023-09-20 22:03] LABS: Glucose,Whole Blood 97 mg/dL (70-110)
[2023-09-20 22:53] VITALS: BP 142/94; PULSE 102; RESP 19
== END 2023-09-20 22:26 | disposition home or self-care (01) ==
LOC: EC 12:16
DX: E86.0 Dehydration (principal); R10.9 Unspecified abdominal pain; I44.4 Left anterior fascicular block; E11.22 Type 2 diabetes mellitus with diabetic chronic kidney disease; I12.9 Hypertensive chronic kidney disease with stage 1 through stage 4 chronic kidney disease, or unspecified chronic kidney disease; E78.5 Hyperlipidemia, unspecified; I25.2 Old myocardial infarction; F32.A Depression, unspecified; N18.9 Chronic kidney disease, unspecified; Z79.899 Other long term (current) drug therapy; Z79.84 Long term (current) use of oral hypoglycemic drugs; Z20.822 Contact with and (suspected) exposure to COVID-19
CPT/HCPCS: 36415; 71046; 74176; 80053; 81001; 83605; 83735; 84484; 85025; 85610; 85730; 87636; 93005; 96360; 99285

== ENCOUNTER → 2023-10-23 | Outpatient (CLI) | payer MEDICARE, OTHER ==
--- NOTE | 2023-10-28 14:28 | MR ---
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 IV Contrast: 15 cc Gadavist. (None if empty) FINDINGS: Alignment: The lumbar vertebral bodies have preserved heights and alignment. There is a rheumatoid d isc at S1-S2 with lumbarization of the S1 vertebrae. Cord: The conus medullaris and the distal spinal cord appear unremarkable with regards to their signa l intensity and morphology. Bones/Discs: Severe degeneration changes throughout the back with facet joint arthropathy, disc space narrowing, osteophytes, Schmorl's nodes and Modic endplate changes. Bony reactive edema at multiple levels of the adjoining endplates most pronounced at L4-L5. Focal fatty bone marrow within the L4 vertebral body which suppresses on fat suppression sequences. There is postcontrast enhancement of the adjoining spinous processes of L4 and L5 as well as the neur al foramen bilaterally at this level. T12-L1: No evidence of significant spinal canal stenosis. Facet joint arthropathy mild bilateral neur al foraminal stenosis. L1-L2: No evidence of significant spinal canal stenosis. Facet joint arthropathy mild bilateral neura l foraminal stenosis. L2-L3: Disc bulge and facet joint arthropathy result in mild to moderate spinal canal and moderate bi lateral neural foraminal stenosis. L3-L4: Disc bulge and facet joint arthropathy result in mild to moderate spinal canal and moderate to severe right and moderate left neural foraminal stenosis. L4-L5: Disc bulge and facet joint arthropathy result in moderate to severe spinal canal and severe ri ght and moderate to severe left neural foraminal stenosis. Small bilateral facet joint effusions are present bilaterally. L5-S1: The disc is rounded posterior morphology without significant spinal canal stenosis. Facet join t arthropathy with mild to moderate bilateral neural foraminal stenosis. Small bilateral facet joint effusions right greater than left. No significant spinal canal or neural foraminal stenosis in the remainder of the visualized levels. Other findings: Partially visualized right urinary bladder trabeculations/diverticula. IMPRESSION: 1. Active inflammation changes at the level of L4-L5 with active inflammation around the nerve roots exiting at L4-L5. There is severe right and moderate to severe left neural foraminal stenosis at thi s level. Given this pseudoarthrosis of the spinous processes correlate for Baastrup's disease. 2. Transitional vertebrae at S1 with lumbarization of the S1 vertebrae. Correlate for Bertolotti syn drome which is a a congenital disorder leading to back pain associated with a lumbosacral transitiona l vertebra. 3. 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 No neural foraminal stenosis as desc ribed above worse at L4-L5. Facet joint arthropathy is severe throughout the lower spine. 4. Urinary bladder trabeculations/diverticula.
== END | disposition home or self-care (01) ==
LOC: RADMRIMAIN 15:10
PROVIDERS: ATTEND Physical Medicine & Rehabilitation
DX: M99.73 Connective tissue and disc stenosis of intervertebral foramina of lumbar region (principal); M51.16 Intervertebral disc disorders with radiculopathy, lumbar region; M47.27 Other spondylosis with radiculopathy, lumbosacral region; Q05.9 Spina bifida, unspecified; M41.26 Other idiopathic scoliosis, lumbar region; M43.16 Spondylolisthesis, lumbar region; M48.062 Spinal stenosis, lumbar region with neurogenic claudication; M51.26 Other intervertebral disc displacement, lumbar region; N32.3 Diverticulum of bladder; N32.89 Other specified disorders of bladder; Z98.890 Other specified postprocedural states; R20.2 Paresthesia of skin
CPT/HCPCS: 72158; A9585

== ENCOUNTER 2023-12-13 18:33 | Emergency (ER) | payer MEDICARE, OTHER ==
[2023-12-13 19:10] VITALS: RESP 18
--- NOTE | 2023-12-13 19:42 | ED ---
ENT HPI - General Chief complaint: ENT Stated complaint: ENT Time Seen by Provider: 12/13/23 19:14 Source: patient Mode of arrival: ambulatory Limitations: no limitations - History of Present Illness Initial comments: 68-year-old male presenting to the ED with a chief complaint of left ear pain. Patient reports that he has a "small ear canal" on the left and reports recurrent obstructions with earwax which she states he follows with ENT for. States today is having ear pain, decreased hearing, and dizziness. Patient states that the symptoms are consistent with his history of this. Reports 1 day of decreased hearing, ear pain, dizziness of his left ear. States that he normally follows with ENT for this however due to it being the weekend is unable to and he reports that when these symptoms occur he becomes anxious which prompted presentation to the ED for further evaluation. Denies chest pain, shortness of breath. No fever or chills. No other complaints at this time. - Related Data Home Medications Medication Instructions Recorded Confirmed Atorvastatin [Lipitor] 20 mg PO DAILY 07/15/14 09/20/23 allopurinoL [Zyloprim] 200 mg PO DAILY 03/05/16 09/20/23 Citalopram Hydrobromide [CeleXA] 20 mg PO DAILY 08/19/18 09/20/23 Diltiazem Cd [Cardizem CD] 300 mg PO DAILY 08/19/18 09/20/23 Magnesium Oxide [Mag-Ox] 800 mg PO DAILY 08/19/18 09/20/23 Cholecalciferol [Vitamin D3 (25 100 mcg PO DAILY 09/20/23 09/20/23 Mcg = 1000 Iu)] Dapagliflozin Propanediol [Farxiga] 10 mg PO DAILY 09/20/23 09/20/23 Docusate [Colace] 100 mg PO DAILY 09/20/23 09/20/23 Insulin Glargine,Hum.rec.anlog 32 units SQ DAILY 09/20/23 09/20/23 [Lantus Solostar Pen] Semaglutide [Ozempic] 1 mg SQ WE 09/20/23 09/20/23 lisinopriL [Zestril] 5 mg PO DAILY 09/20/23 09/20/23 metFORMIN HCL ER [Glucophage XR] 1,000 mg PO DAILY 09/20/23 09/20/23 Allergies Allergy/AdvReac Type Severity Reaction Status Date / Time No Known Allergies Allergy Verified 12/13/23 18:44 Review of Systems ROS Statement: Those systems with pertinent positive or pertinent negative responses have been documented in the HPI. ROS Other: All systems not noted in ROS Statement are negative. 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 Past Anesthesia/Blood Transfusion Reactions: No Reported Reaction Past Psychological History: Depression Smoking Status: Never smoker Past Alcohol Use History: Rare Past Drug Use History: None Reported - Past Family History Father Family Medical History: Coronary Artery Disease (CAD) Additional Family Medical History / Comment(s): Father while on the list for a heart donation. He had CABG twice. Mother Family Medical History: Coronary Artery Disease (CAD), Hypertension, Renal Disease Additional Family Medical History / Comment(s): Mother had CABG. She lived to be 97yrs old. General Exam Limitations: no limitations General appearance: alert, in no apparent distress Eye exam: Present: normal appearance ENT exam: Present: other (Right TM unremarkable. Ear canal clear. Left TM not visible secondary to cerumen. However no external canal erythema or swelling. No other ear warmth erythema edema tenderness to palpation. No mastoid process tenderness to palpation.) Respiratory exam: Present: normal lung sounds bilaterally Cardiovascular Exam: Present: regular rate GI/Abdominal exam: Present: soft Neurological exam: Present: alert, oriented X3, CN II-XII intact Skin exam: Present: warm, dry Course Vital Signs 12/13/23 18:41 Temperature 98.4 F Pulse Rate 70 Respiratory 18 Rate Blood Pressure 188/93 O2 Sat by Pulse 96 Oximetry Procedures - Ear Wax Removal Left Ear Ear Canal(s) Curetted: plastic scoops Results: Re-examined: cerumen removed completely TM Visible: TM(s) intact, normal appearance Ear Canal: atraumatic Patient Tolerated Procedure: well, no complications Complications: no problems Medical Decision Making - Medical Decision Making Was pt. sent in by a medical professional or institution (, [facility], MEDICAL DELIVERY DRIVER, urgent care, hospital, or long term...) When possible be specific @ -No Did you speak to anyone other than the patient for history (EMS, parent, family, police, friend...)? What history was obtained from this source @ -No Did you review nursing and triage notes (agree or disagree)? Why? @ -I reviewed and agree with nursing and triage notes Were old charts reviewed (outside hosp., previous admission, EMS record, old EKG, old radiological studies, urgent care reports/EKG's, long term records)? Report findings @ -No old charts were reviewed Differential Diagnosis (chest pain, altered mental status, abdominal pain women, abdominal pain men, vaginal bleeding, weakness, fever, dyspnea, syncope, headache, dizziness, GI bleed, back pain, seizure, CVA, palpatations, mental health, musculoskeletal)? @ -Differential Dizziness: Benign paroxysmal positional Vertigo, Menieres disease, otitis media, acoustic neuroma, vertebrobasilar insufficiency, cerebellar stroke, encephalitis, hypovolemic, arrhythmia, coronary artery syndrome, anemia, this is not meant to be an all-inclusive list EKG interpreted by me (3pts min.). @ -None X-rays interpreted by me (1pt min.). @ -None done CT interpreted by me (1pt min.). @ -None done U/S interpreted by me (1pt. min.). @ -None done What testing was considered but not performed or refused? (CT, X-rays, U/S, labs)? Why? @ -None What meds were considered but not given or refused? Why? @ -None Did you discuss the management of the patient with other professionals (professionals i.e. , [facility], MEDICAL DELIVERY DRIVER, lab, RT, psych nurse, social professionals, tea bag machine tender, teacher, juvenile officer, case management director)? Give summary @ -No Was smoking cessation discussed for >3mins.? @ -No Was critical care preformed (if so, how long)? @ -No Were there social determinants of health that impacted care today? How? (Homelessness, low income, unemployed, alcoholism, drug addiction, transportation, low edu. Level, literacy, decrease access to med. care, skilled nursing, rehab)? @ -No Was there de-escalation of care discussed even if they declined (Discuss DNR or withdrawal of care, Hospice)? DNR status @ -No What co-morbidities impacted this encounter? (DM, HTN, Smoking, COPD, CAD, Cancer, CVA, ARF, Chemo, Hep., AIDS, mental health diagnosis, sleep apnea, morbid obesity)? @ -None Was patient admitted / discharged? Hospital course, mention meds given and route, prescriptions, significant lab abnormalities, going to OR and other pertinent info. @ -Discharge 68-year-old male presenting to the ED with complaints of left ear pain, decreased hearing, and dizziness. Patient reports that this is a recurrent problem and normally follows with ENT for this however with it being the weekend is unable to. Ear Canal was cleared with a curette. For further details please see procedure note. Following this procedure, patient reported complete resolution of symptoms and would like to go home. Would not like any further te sting at this point due to his symptoms being completely resolved. Discharged home in stable condition with referral to see ENT. Discussed strict return precautions with patient who verbalized agreement. Undiagnosed new problem with uncertain prognosis? @ -No Drug Therapy requiring intensive monitoring for toxicity (Heparin, Nitro, Insulin, Cardizem)? @ -No Were any procedures done? @ -Yes, please see procedure note for further details Diagnosis/symptom? @ -Cerumen impaction, left ear Acute, or Chronic, or Acute on Chronic? @ -Acute on chronic Uncomplicated (without systemic symptoms) or Complicated (systemic symptoms)? @ -Uncomplicated Side effects of treatment? @ -No Exacerbation, Progression, or Severe Exacerbation? @ -No Poses a threat to life or bodily function? How? (Chest pain, [place], [place], pneumonia, PE, COPD, DKA, ARF, appy, cholecystitis, CVA, Diverticulitis, Homicidal, Suicidal, threat to staff... and all critical care pts) @ -No Disposition Clinical Impression: Impacted cerumen, left ear Disposition: HOME SELF-CARE Condition: Good Additional Instructions: Please return to the Emergency Department if symptoms worsen or any other con cerns. Please follow-up with ENT. Use Debrox [id number] as needed for symptoms. Is patient prescribed a controlled substance at d/c from ED?: No Referrals: Damon Tim [Primary Care Provider] - 1-2 days Ned Fleming MD [STAFF PHYSICIAN] - 1-2 days Time of Disposition: 19:47
[2023-12-13 20:44] VITALS: BP 160/86; PULSE 77; TEMP 98.2
== END 2023-12-13 21:45 | disposition home or self-care (01) ==
LOC: EC 18:33
DX: H61.22 Impacted cerumen, left ear (principal)
CPT/HCPCS: 69210; 99282

== ENCOUNTER 2024-07-06 13:48 | Emergency (ER) | payer MEDICARE, OTHER ==
--- NOTE | 2024-07-06 14:10 | ED ---
General Adult HPI - General Source: patient, RN notes reviewed Mode of arrival: ambulatory Limitations: physical limitation <Raghav Black - Last Filed: 07/06/24 14:09> - General Source: patient, RN notes reviewed Mode of arrival: ambulatory <Ella Clemons - Last Filed: 07/06/24 23:53> - General Stated complaint: R arm/neck pain Time Seen by Provider: 07/06/24 14:05 - History of Present Illness Initial comments: Quick note 68-year-old male presents emergency department right-sided neck pain right shoulder pain. He states he woke up with this for days ago states that initially his pain but is causing decreased range of motion of his right shou lder he has constant pain worse with movement no chest pain no headache no dizziness no other focal weakness. (Raghav Black) 68-year-old male presenting to the ER for evaluation of right shoulder pain. Patient states has been ongoing for the past 2 days. He initially stated pain was causing him to have limited range of motion but states is now persisting even without motion. He has tried heating pad and [id number] Tylenol without relief. He denies any chest pain, headache, dizziness, lightheadedness, shortness of breath, known injuries. (Ella Clemons) - Related Data Home Medications Medication Instructions Recorded Confirmed Atorvastatin [Lipitor] 20 mg PO DAILY 07/15/14 12/16/23 allopurinoL [Zyloprim] 200 mg PO DAILY 03/05/16 12/16/23 Diltiazem Cd [Cardizem CD] 300 mg PO DAILY 08/19/18 12/16/23 Insulin Glargine,Hum.rec.anlog 32 units SQ DAILY 09/20/23 12/16/23 [Lantus Solostar Pen] lisinopriL [Zestril] 5 mg PO DAILY 09/20/23 12/16/23 metFORMIN HCL ER [Glucophage XR] 1,000 mg PO DAILY 09/20/23 12/16/23 Cholecalciferol [Vitamin D3 (125 125 mcg PO DAILY 12/16/23 12/16/23 Mcg = 5000 Iu)] Furosemide [Lasix] 20 mg PO DAILY 12/16/23 12/16/23 Gabapentin [Neurontin] 300 mg PO DAILY 12/16/23 12/16/23 traMADol HCL 50 mg PO TID PRN 12/16/23 12/16/23 Previous Rx's Medication Instructions Recorded Meclizine [Antivert] 25 mg PO TID PRN #12 tab 12/16/23 predniSONE 50 mg PO DAILY #5 tab 07/06/24 Allergies Allergy/AdvReac Type Severity Reaction Status Date / Time No Known Allergies Allergy Verified 07/06/24 14:29 Review of Systems ROS Other: All systems not noted in ROS Statement are negative. <Raghav Black - Last Filed: 07/06/24 14:09> ROS Other: All systems not noted in ROS Statement are negative. <Ella Clemons - Last Filed: 07/06/24 23:53> ROS Statement: Those systems with pertinent positive or pertinent negative responses have been documented in the HPI. 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 Past Anesthesia/Blood Transfusion Reactions: No Reported Reaction Past Psychological History: Depression Smoking Status: Never smoker Past Alcohol Use History: Rare Past Drug Use History: None Reported - Past Family History Father Family Medical History: Coronary Artery Disease (CAD) Additional Family Medical History / Comment(s): Father while on the list for a heart donation. He had CABG twice. Mother Family Medical History: Coronary Artery Disease (CAD), Hypertension, Renal D isease Additional Family Medical History / Comment(s): Mother had CABG. She lived to be 97yrs old. <Raghav Black - Last Filed: 07/06/24 14:09> General Exam <Raghav Black - Last Filed: 07/06/24 14:09> Limitations: no limitations General appearance: alert, in no apparent distress Respiratory exam: Present: normal lung sounds bilaterally. Absent: respiratory distress, wheezes, rales, rhonchi, stridor Cardiovascular Exam: Present: regular rate, normal rhythm, normal heart sounds. Absent: systolic murmur, diastolic murmur, rubs, gallop, clicks Extremities exam: Present: normal inspection, tenderness (Right AC joint. Limited range of motion due to pain.), other (2+ right radial pulse.) Neurological exam: Present: alert, oriented X3, CN II-XII intact Skin exam: Present: warm, dry, intact, normal color. Absent: rash <Ella Clemons - Last Filed: 07/06/24 23:53> - General Exam Comments Initial Comments: Visual Physical Exam Vital signs reviewed General: Well-appearing, nontoxic, no acute distress. Head: Normocephalic, atraumatic Eyes: PERRLA, EOMI ENT: Airway patent Chest: Nonlabored breathing Skin: No visual rash, normal skin tone Neuro: Alert and oriented 3 Musculoskeletal: No gross abnormalities (Raghav Black) Course Vital Signs 07/06/24 07/06/24 14:26 17:04 Temperature 98.4 F 97.9 F Pulse Rate 77 76 Respiratory 16 18 Rate Blood Pressure 128/70 130/80 O2 Sat by Pulse 95 95 Oximetry Medical Decision Making <Raghav Black - Last Filed: 07/06/24 14:09> - Radiology Data Radiology results: report reviewed, image reviewed <Ella Clemons - Last Filed: 07/06/24 23:53> - Medical Decision Making I completed the quick note portion of this chart signed Raghav Black PA-C (Raghav Black) Was pt. sent in by a medical professional or institution ([facility], CATTERY OPERATOR, urgent care, hospital, or care home...) When possible be specific @ -No Did you speak to anyone other than the patient for history (EMS, parent, family, police, friend...)? What history was obtained from this source @ -No Did you review nursing and triage notes (agree or disagree)? Why? @ -I reviewed and agree with nursing and triage notes Were old charts reviewed (outside hosp., previous admission, EMS record, old EKG, old radiological studies, urgent care reports/EKG's, care home records)? Report findings @ -No old charts were reviewed Differential Diagnosis (chest pain, altered mental status, abdominal pain women, abdominal pain men, vaginal bleeding, weakness, fever, dyspnea, syncope, headache, dizziness, GI bleed, back pain, seizure, CVA, palpatations, mental health, musculoskeletal)? @ -Differential Musculoskeletal: Muscular strain, contusion, ligament sprain, fracture, arthritis, septic arthritis, bursitis, cellulitis, muscle spasm, nerve compression, DVT, arterial occlusion, herpes zoster, electrolyte abnormality, tumor.... This is not meant to be in all inclusive list EKG interpreted by me (3pts min.). @ -None done X-rays interpreted by me (1pt min.). @ -Right shoulder x-ray showing severe osteoarthritis with deformity of the right humeral head. Cervical spine x-rays interpreted by me negative for acute fractures or dislocations. CT interpreted by me (1pt min.). @ -None done U/S interpreted by me (1pt. min.). @ -None done What testing was considered but not performed or refused? (CT, X-rays, U/S, labs)? Why? @ -None What meds were considered but not given or refused? Why? @ -None Did you discuss the management of the patient with other professionals (professionals i.e. , PA, CATTERY OPERATOR, lab, RT, psych nurse, social insurance administrator, property management accountant, teacher, airline pilot/first officer, case therapist)? Give summary @ -No Was smoking cessation discussed for >3mins.? @ -No Was critical care preformed (if so, how long)? @ -No Were there social determinants of health that impacted care today? How? (Homelessness, low income, unemployed, alcoholism, drug addiction, transportation, low edu. Level, literacy, decrease access to med. care, [facility], rehab)? @ -No Was there de-escalation of care discussed even if they declined (Discuss DNR or withdrawal of care, Hospice)? DNR status @ -No What co-morbidities impacted this encounter? (DM, HTN, Smoking, COPD, CAD, Cancer, CVA, ARF, Chemo, Hep., AIDS, mental health diagnosis, sleep apnea, morbid obesity)? @ -Obese Was patient admitted / discharged? Hospital course, mention meds given and route, prescriptions, significant lab abnormalities, going to OR and other pertinent info. @ -Discharge. 68-year-old male presented to the ER for evaluation of right shoulder pain. Patient originally seen as a quick note for which x-rays were ordered. Upon rooming, history and physical exam completed. Vitals within normal limits. Patient neurovascularly intact. Tenderness to right AC joint. No radiation of pain. No chest pain no shortness of breath. X-ray showing severe osteoarthritis with deformity of the right humeral head. Patient given Tylenol 3 starter pack and prednisone for symptom control. I advised him to follow-up closely with orthopedics, referral given. Strict return parameters discussed. Patient discharged in stable condition with follow-up to PCP. Patient verbally expressed understanding and agreement with care plan. Case discussed with ED attending, Dr. Connor. Undiagnosed new problem with uncertain prognosis? @ -No Drug Therapy requiring intensive monitoring for toxicity (Heparin, Nitro, Insulin, Cardizem)? @ -No Were any procedures done? @ -No Diagnosis/symptom? @ -Shoulder pain Acute, or Chronic, or Acute on Chronic? @ -Acute Uncomplicated (without systemic symptoms) or Complicated (systemic symptoms)? @ -Uncomplicated Side effects of treatment? @ -No Exacerbation, Progression, or Severe Exacerbation? @ -No Poses a threat to life or bodily function? How? (Chest pain, [place], [place], pneumonia, PE, COPD, DKA, ARF, appy, cholecystitis, CVA, Diverticulitis, Homicidal, Suicidal, threat to staff... and all critical care pts) @ -No (Ella Clemons) Disposition <Raghav Black - Last Filed: 07/06/24 14:09> Is patient prescribed a controlled substance at d/c from ED?: No Time of Disposition: 16:22 <Ella Clemons - Last Filed: 07/06/24 23:53> Clinical Impression: Osteoarthritis, Shoulder pain Disposition: HOME SELF-CARE Condition: Stable Instructions (If sedation given, give patient instructions): Osteoarthritis (DC) Additional Instructions: Follow-up with orthopedics. Return to the ER for any new or worsening concerns. Prescriptions: predniSONE 50 mg PO DAILY #5 tab Referrals: Damon Tim [Primary Care Provider] - 1-2 days Newton Montes DO [Doctor of Osteopathic Medicine] - 1-2 days
--- NOTE | 2024-07-06 15:20 | XR ---
EXAMINATION TYPE: XR shoulder complete RT DATE OF EXAM: 07/06/2024 3:03 PM COMPARISON: None CLINICAL INDICATION: Male, 68 years old with history of pain; PHH, pain TECHNIQUE: XR shoulder complete RT; examined in AP, internally rotated and scapular Y projections. FINDINGS: Deformity to the right humeral head with osteophyte formation joint space narrowing. No evidence of a cute osseous pathology, joint dislocation, or soft tissue swelling. The remaining portions of the vi sualized chest are unremarkable. IMPRESSION: Severe right shoulder osteoporosis with deformity to the right humeral head. [facility], , 07/06/2024 3:18 PM
--- NOTE | 2024-07-06 15:21 | XR ---
EXAMINATION TYPE: XR cervical spine comp DATE OF EXAM: 07/06/2024 3:03 PM COMPARISON: None CLINICAL INDICATION: Male, 68 years old with history of pain; TECHNIQUE: The cervical spine was imaged in frontal, lateral, odontoid and bilateral oblique. FINDINGS: The osseous structures show normal alignment without evidence of an acute fracture. There are osteoph ytes noted throughout the cervical spine on the anterior and lateral aspects of the vertebral bodies. The intervertebral disk spaces are narrowed at multiple levels. Pedicles are intact. Soft tissues a re within normal limits. The odontoid appears intact. IMPRESSION: 1. No fracture or dislocation. 2. 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 [facility], , 07/06/2024 3:19 PM
[2024-07-06] MEDS: Acetaminophen-Codeine 300-30mg TAB PO STA (16:36)
[2024-07-06] MEDS: ACET/COD 300 MG/30 MG STARTER PACK 6 TAB BTL PO STA (16:59)
[2024-07-06] MEDS: HYDROmorphone 1 MG/ML 1 ML SYRINGE IM STA (16:59)
[2024-07-06 17:05] VITALS: BP 130/80; PULSE 76; RESP 18; TEMP 97.9
== END 2024-07-06 17:09 | disposition home or self-care (01) ==
LOC: EC 13:48
DX: M19.011 Primary osteoarthritis, right shoulder (principal); E66.9 Obesity, unspecified; Z68.42 Body mass index [BMI] 45.0-49.9, adult
CPT/HCPCS: 72050; 73030; 99283; 96372; J1171